=== PATIENT | female | born 1975 | race Caucasian/White ===

== ENCOUNTER 2016-10-06 17:22 | Inpatient (IN) ==
[2016-10-06] MEDS: 0.9 % Sodium Chloride 1,000 ML IVC SCH ×2 (17:45→20:21)
[2016-10-06] MEDS ORDERED: *HR* HYDROmorphone (PF) 1 MG/ML SYRINGE IVP ONE ×2 (17:51→21:49)
[2016-10-06] MEDS ORDERED: *HR* Promethazine 25 MG/ML VIAL IVP ONE (17:51)
--- NOTE | 2016-10-06 18:21 | Emergency Department Note ---
Disposition Clinical Impression: Tachycardia, UTI (urinary tract infection) Disposition: Admitted As Inpatient Condition: Fair Time of Disposition: 21:56 Abdominal Pain HPI - General Chief Complaint: ED Abdominal Pain Stated Complaint: Abd pain Time Seen by Provider: 10/06/16 17:23 Source: patient, EMS Mode of arrival: EMS Limitations: no limitations Nursing Notes Reviewed: Yes Vital Signs Reviewed: Yes - History of Present Illness HPI Narrative: 41-year-old female presents to the ED complaining of left flank pain as well as lower pelvic pain. She states that she has had a fever for the past couple days. She states the left flank pain started about 3 days ago she states the pain is 8 out of 10 radiating further to the back from the flank. She states is a sharp stabbing pain and she has not taken anything for the pain at this time. today she is just been very nauseous and dry heaving but has not vomited anything at this time. She notes no diarrhea or constipation. She notes no shortness of breath or chest pains, headaches, blurry vision, back pain, pain with urination or any trouble urinating. The pelvic pain that she notes is a 2 out of 10 she more says it is a bloating feeling and not really a sharp pain. She states this started at the same time. As for she has not been vomiting but has been dry heaving and nothing is came out. She said she has not been him of the ENT anything for the past day or 2 discussed she does not feel very good. She never did check her temperature was as she has felt hot. IV EMS and came from an urgent care who did a urine dip and showed there was blood in there. She states that she has not had her period in a few months and feels she is beginning menopause. She did have a tubal ligation and does not believe she could be . Pain Scale: 9 - Related Data Home Medications Medication Instructions Recorded Confirmed No Known Home Drugs 10/06/16 10/06/16 Allergies Allergy/AdvReac Type Severity Reaction Status Date / Time Penicillins Allergy Hives Verified 10/06/16 16:00 Constitutional: Reports: fever, weakness. Denies: chills, weight change Eyes: Denies: eye pain, eye discharge, vision change ENT ED: Denies: ear pain, throat pain, dental pain, hearing loss, epistaxis, congestion, dysphagia Cardiovascular: Denies: chest pain, palpitations, dyspnea on exertion, edema, syncope Respiratory: Denies: cough, dyspnea, wheezes, hemoptysis, stridor Gastrointestinal: Reports: abdominal pain, vomiting. Denies: nausea, diarrhea, constipation, hematemesis, melena, hematochezia Genitourinary: Denies: dysuria, frequency, hematuria, discharge Musculoskeletal: Denies: back pain, neck pain, arthralgia, myalgia Integumentary: Denies: rash, abrasion, lesions Neurological: Reports: weakness. Denies: headache, numbness, paresthesias, confusion, abnormal gait, vertigo Psychiatric: Reports: as per HPI Hematological/Lymphatic: Denies: easy bleeding, easy bruising Abdominal Pain PMH - Past Medical History Medical history: Reports: hypertension, other Female Surgical History: Reports: knee replacement, orthopedic, other [employer] history: Reports: bilateral tubal ligation Psychiatric history: Reports: no psych history - Social History Smoking status: Current every day smoker Alcohol use: Reports: none Drug use: Reports: none Physical Exam - General Limitations: no limitations General appearance: alert, in no apparent distress - Head Head exam: atraumatic, normocephalic, normal inspection - Eye Eye exam: Present: normal appearance, PERRL, EOMI - ENT ENT exam: normal exam, normal oropharynx, mucous membranes moist - Neck Neck exam: Present: normal inspection, full ROM, trachea midline. Absent: tenderness, meningismus, lymphadenopathy - Chest Chest inspection: Present: normal inspection, symmetric chest wall rise. Absent : tenderness - Respiratory Respiratory exam: Present: normal lung sounds bilaterally - Cardiovascular Cardiovascular exam: Present: regular rate, normal rhythm, normal heart sounds - Abdominal Exam Abdominal exam: Present: soft, Non-Tender, tenderness (To the left upper quadrant on palpation.), normal bowel sounds. Absent: distention, guarding, rebound, rigidity, trauma, Nicholson's sign, Rovsing's sign, tenderness at McBurney 's Point, mass - Back Exam Back exam: Present: normal inspection, full ROM, CVA tenderness (L). Absent: tenderness, CVA tenderness (R) - Neurological Exam Neurological exam: Present: alert, oriented X3 - Skin Skin exam: Present: warm, dry, intact, normal color Course Course Narrative: [id number] male presents the ED with a fever of 100.8, tachycardic at 112 bpm, and complaining of left flank pain therefore she meets sepsis criteria and the sepsis protocol was started. I believe this most likely to be a pyelonephritis due to possible obstructing stone. We will get a CT of her abdomen and pelvis without contrast. We will do a chest x-ray as left flank pain could be pulmonary in etiology. We will get basic labs including CBC, CMP , urinalysis as well as blood cultures. We started her on Rocephin for antibiotics at this time. She was also given 2 L IV fluids for dehydration. She was given a Zofran by EMS prior to arrival which did not help her nausea. So we gave her 12.5 mg of Phenergan to help with the nausea. Gave her 0.5 mg of Dilaudid for her left flank pain. We do not give Toradol at this time due to not knowing her kidney function. And this being possible kidney etiology. As of This plan by disposition is most likely admission due to being Sirs positive - Reevaluation(s) Reevaluation #1: Patient reevaluated at this time and states that the nausea is much better after the Phenergan. She says the pain has decreased in her left side and only occurs and she takes a very deep breath. She said the Dilaudid worked very well. She says that she is feeling much better at this time does not think she is in a pew. She does not feel as hot anymore. At this time only 1 L of fluids have gone in. I we will still give the second liter fluids as I think most of her symptoms are from dehydration. CT scan came back which showed most likely enteritis as well as calculi in the renal collecting system. They also mentioned that she had cholecystic fluid but no acute cholecystitis this time. They also mentioned she had a very small less than half centimeter squared lung nodule that needed to be followed up with in 6 months with a second CT scan. I told her about all these results. The labs were held up because she was a very hard stick and they were just taken and we are now currently waiting lab results. Now I think she is not meeting surge criteria after she gets the second bag of fluids as well as the nausea medication. Vital Signs Temperature 100.8 F H 10/06/16 17:28 Pulse Rate 117 08/31/17 17:28 Respiratory Rate 22 10/06/16 17:28 Blood Pressure 113/71 10/06/16 17:28 O2 Sat by Pulse Oximetry 98 10/06/16 17:28 Temperature 100.8 F H 10/06/16 17:28 Pulse Rate 117 10/06/16 17:28 Respiratory Rate 18 10/06/16 22:46 Blood Pressure 119/79 10/06/16 22:46 O2 Sat by Pulse Oximetry 98 10/06/16 17:28 Oxygen Delivery Oxygen Delivery Room Air Abdominal Pain - MDM Narrative Medical decision making narrative: 41-year-old female presents to the ED complaining of left flank pain, fever, pelvic pain. Patient presented here she did meet surge criteria on being tachycardic and having a fever. So we immediately started the sepsis protocol or gave HER-2 liters of fluid, ceftriaxone, and basic labs. There was nolab abnormalities other than her being low on platelets. I think this does not need be looked at this time but definitely needs follow-up in the outpatient setting. On UA she did show to have a urinary tract infection which is being treated with the Rocephin. Chest x-ray is normal. CT scan of her abdomen and pelvis was done which showed enteritis, calculi in the renal to her system, biliary sludge but no signs of acute cholecystitis. There also was a lung nodule that is very small that was recommended outpatient follow-up in 6 months. This is all related to the patient. After the 2 ` fluid in the Rocephin she was still tachycardic at 115 bpm. Due to just being unable to control the tachycardia after 2 bags of fluids without admission would be the best course of action. She is still complaining of that left flank pain after talking to her more we decided we did order a d-dimer for possible PE as she cannot be PERC ruled out. If this comes back positive we will order a CT Adela of her chest to rule out PE. Although this is less likely. I talked to the hospitalist Dr. Price who agreed to accept the patient. Patient agreed this plan. Patient this time is now being admitted still being tachycardic up to the hospitalist service. And all other she is stable at this time. She left the department before the d-dimer could be drawn or resulted. The hospitalist will follow up with this on order during a CT angiogram if needed for PE rule out. Chest X-Ray 10/06/16 17:39 IMPRESSION: No acute cardiopulmonary process. D/ / Rory Sims MD / Rory Sims MD Interpreting Provider: Rory Sims MD Abdomen/Pelvis CT 10/06/16 17:50 IMPRESSION: 1. A few mildly dilated jejunal loops potentially related to low-grade enteritis. Liquid stool in the proximal right hemicolon may represent associated diarrhea. 2. Nonobstructing calculi in the renal collecting systems. 3. Questionable biliary sludge and/or cholelithiasis without findings of acute cholecystitis. 4. New 0.8 cm x 0.6 cm solid nodule in the right middle lobe. An infectious or inflammatory etiology is considered most likely. Recommend follow-up chest CT in 6-12 months per the Fleischner Society recommendations for solid pulmonary nodules as below. RECOMMENDATIONS: Fleischner Society guidelines for follow-up and management of incidentally detected pulmonary nodules: Single Solid Nodule: Nodule size equals 6-8 mm In a low-risk patient, CT at 6-12 months, then consider CT at 18-24 months. In a high-risk patient, CT at 6-12 months, then CT at 18-24 months. - Low risk patients include individuals with minimal or absent history of smoking and other known risk factors. - High risk patients include individuals with a history or smoking or known risk factors. Radiology 2017 http://pubs.rsna.org/doi/full/10.1148/radiol.[email or web address] D/ / Rory Sims MD / Rory Sims MD Interpreting Provider: Rory Sims MD - Medical Records Medical records reviewed: Yes I reviewed the patient's medical records. - Lab Data Lab results reviewed: Yes I reviewed the patient's lab results. Result diagrams: 10/06/16 19:18 10/06/16 19:18 Lab Results 10/06/16 10/06/16 10/06/16 Range/Units 19:18 19:18 19:18 WBC 9.3 (4.3-11.1) K/mcL RBC 5.07 H (3.82-4.97) M/mcL Hgb 13.3 (11.5-15.4) g/dL Hct 40.5 (35.3-44.9) % MCV 79.9 L (83.0-100.0) fL MCH 26.2 L (28.0-33.3) pg MCHC 32.8 (31.6-35.5) g/dL RDW 14.1 (11.5-14.5) % Plt Count 104 L (140-400) K/mcL MPV 11.6 (9.4-12.4) fL Immature Gran % 0.4 (0-4) % Seg Neutrophils % 81.5 % Lymphocytes % 9.3 % Monocytes % 8.7 % Eosinophils % 0.0 % Basophils % 0.1 % Neutrophils # 7.5 (1.6-8.9) K/mcL Lymphocytes # 0.9 (0.6-4.6) K/mcL Monocytes # 0.8 (0.0-1.3) K/mcL Eosinophils # 0.0 (0.0-0.6) K/mcL Basophils # 0.0 (0.0-0.2) K/mcL PT (9.4-12.1) Seconds INR APTT (26.0-36.0) Seconds Sodium (136-145) mEq/L Potassium (3.5-4.5) mEq/L Chloride (98-109) mEq/L Carbon Dioxide (19-29) mEq/L BUN (7-20) mg/dL Creatinine (0.57-1.11) mg/dL Est GFR ( Amer) (> 60) Est GFR (Non-Af Amer) (> 60) BUN/Creatinine Ratio (6-26) Glucose (70-99) mg/dL Calculated Osmolality (280-300) Lactic Acid (0.5-2.2) mmol/L Calcium (8.6-10.8) mg/dL Phosphorus (2.3-4.7) mg/dL Magnesium (1.6-2.6) mg/dL Total Bilirubin (0.2-1.2) mg/dL Direct Bilirubin (0.0-0.5) mg/dL Indirect Bilirubin (0.0-1.2) mg/dL AST (5-34) Units/L ALT (0-55) Units/L Alkaline Phosphatase (38-126) Units/L Troponin I (0-0.03) ng/mL B-Natriuretic Peptide 11 (0-100) pg/mL Serum Total Protein (6.0-8.3) g/dL Albumin (3.5-5.0) g/dL Globulin (2.4-3.5) g/dL Albumin/Globulin Ratio (1.1-2.2) Random Cortisol 13.8 mcg/dl Urine Color (Yellow) Urine Clarity (Clear) Urine pH (5.0-8.0) pH Units Ur Specific [place] (1.010-1.025) Urine Protein (Neg-Trace) mg/dL Urine Glucose (UA) (Normal) mg/dL Urine Ketones (Negative) mg/dL Urine Blood (Negative) Urine Nitrite (Negative) Urine Bilirubin (Negative) Urine Urobilinogen (Normal) mg/dL Ur Leukocyte Esterase (Negative) Urine Microscopic RBC (0-3) per hpf Urine Microscopic WBC (0-3) per hpf Ur Squamous Epith Cells (None-Few) per lpf Urine Bacteria (None-Few) per hpf Hyaline Casts (None-Few) per lpf Granular Casts (None Seen) per lpf Ur Culture Indicated? (NO) 10/06/16 10/06/16 10/06/16 Range/Units 19:18 19:18 19:18 WBC (4.3-11.1) K/mcL RBC (3.82-4.97) M/mcL Hgb (11.5-15.4) g/dL Hct (35.3-44.9) % MCV (83.0-100.0) fL MCH (28.0-33.3) pg MCHC (31.6-35.5) g/dL RDW (11.5-14.5) % Plt Count (140-400) K/mcL MPV (9.4-12.4) fL Immature Gran % (0-4) % Seg Neutrophils % % Lymphocytes % % Monocytes % % Eosinophils % % Basophils % % Neutrophils # (1.6-8.9) K/mcL Lymphocytes # (0.6-4.6) K/mcL Monocytes # (0.0-1.3) K/mcL Eosinophils # (0.0-0.6) K/mcL Basophils # (0.0-0.2) K/mcL PT 12.6 H (9.4-12.1) Seconds INR 1.2 APTT 28.9 (26.0-36.0) Seconds Sodium 130 L (136-145) mEq/L Potassium 3.4 L (3.5-4.5) mEq/L Chloride 101 (98-109) mEq/L Carbon Dioxide 19 (19-29) mEq/L BUN 20 (7-20) mg/dL Creatinine 0.93 (0.57-1.11) mg/dL Est GFR ( Amer) > 60 (> 60) Est GFR (Non-Af Amer) > 60 (> 60) BUN/Creatinine Ratio 22 (6-26) Glucose 116 H (70-99) mg/dL Calculated Osmolality 274 L (280-300) Lactic Acid 0.9 (0.5-2.2) mmol/L Calcium 9.0 (8.6-10.8) mg/dL Phosphorus 2.1 L (2.3-4.7) mg/dL Magnesium 1.5 L (1.6-2.6) mg/dL Total Bilirubin 0.7 (0.2-1.2) mg/dL Direct Bilirubin 0.3 (0.0-0.5) mg/dL Indirect Bilirubin 0.4 (0.0-1.2) mg/dL AST 22 (5-34) Units/L ALT 20 (0-55) Units/L Alkaline Phosphatase 91 (38-126) Units/L Troponin I (0-0.03) ng/mL B-Natriuretic Peptide (0-100) pg/mL Serum Total Protein 7.2 (6.0-8.3) g/dL Albumin 3.0 L (3.5-5.0) g/dL Globulin 4.2 H (2.4-3.5) g/dL Albumin/Globulin Ratio 0.7 L (1.1-2.2) Random Cortisol mcg/dl Urine Color (Yellow) Urine Clarity (Clear) Urine pH (5.0-8.0) pH Units Ur Specific [place] (1.010-1.025) Urine Protein (Neg-Trace) mg/dL Urine Glucose (UA) (Normal) mg/dL Urine Ketones (Negative) mg/dL Urine Blood (Negative) Urine Nitrite (Negative) Urine Bilirubin (Negative) Urine Urobilinogen (Normal) mg/dL Ur Leukocyte Esterase (Negative) Urine Microscopic RBC (0-3) per hpf Urine Microscopic WBC (0-3) per hpf Ur Squamous Epith Cells (None-Few) per lpf Urine Bacteria (None-Few) per hpf Hyaline Casts (None-Few) per lpf Granular Casts (None Seen) per lpf Ur Culture Indicated? (NO) 10/06/16 10/06/16 Range/Units 19:18 19:40 WBC (4.3-11.1) K/mcL RBC (3.82-4.97) M/mcL Hgb (11.5-15.4) g/dL Hct (35.3-44.9) % MCV (83.0-100.0) fL MCH (28.0-33.3) pg MCHC (31.6-35.5) g/dL RDW (11.5-14.5) % Plt Count (140-400) K/mcL MPV (9.4-12.4) fL Immature Gran % (0-4) % Seg Neutrophils % % Lymphocytes % % Monocytes % % Eosinophils % % Basophils % % Neutrophils # (1.6-8.9) K/mcL Lymphocytes # (0.6-4.6) K/mcL Monocytes # (0.0-1.3) K/mcL Eosinophils # (0.0-0.6) K/mcL Basophils # (0.0-0.2) K/mcL PT (9.4-12.1) Seconds INR APTT (26.0-36.0) Seconds Sodium (136-145) mEq/L Potassium (3.5-4.5) mEq/L Chloride (98-109) mEq/L Carbon Dioxide (19-29) mEq/L BUN (7-20) mg/dL Creatinine (0.57-1.11) mg/dL Est GFR ( Amer) (> 60) Est GFR (Non-Af Amer) (> 60) BUN/Creatinine Ratio (6-26) Glucose (70-99) mg/dL Calculated Osmolality (280-300) Lactic Acid (0.5-2.2) mmol/L Calcium (8.6-10.8) mg/dL Phosphorus (2.3-4.7) mg/dL Magnesium (1.6-2.6) mg/dL Total Bilirubin (0.2-1.2) mg/dL Direct Bilirubin (0.0-0.5) mg/dL Indirect Bilirubin (0.0-1.2) mg/dL AST (5-34) Units/L ALT (0-55) Units/L Alkaline Phosphatase (38-126) Units/L Troponin I 0.01 (0-0.03) ng/mL B-Natriuretic Peptide (0-100) pg/mL Serum Total Protein (6.0-8.3) g/dL Albumin (3.5-5.0) g/dL Globulin (2.4-3.5) g/dL Albumin/Globulin Ratio (1.1-2.2) Random Cortisol mcg/dl Urine Color Dark Yellow (Yellow) Urine Clarity Turbid A (Clear) Urine pH 6.0 (5.0-8.0) pH Units Ur Specific [place] 1.023 (1.010-1.025) Urine Protein 100 H (Neg-Trace) mg/dL Urine Glucose (UA) Normal (Normal) mg/dL Urine Ketones Trace H (Negative) mg/dL Urine Blood Moderate H (Negative) Urine Nitrite Positive A (Negative) Urine Bilirubin Small H (Negative) Urine Urobilinogen Normal (Normal) mg/dL Ur Leukocyte Esterase Moderate H (Negative) Urine Microscopic RBC 5-15 H (0-3) per hpf Urine Microscopic WBC 15-30 H (0-3) per hpf Ur Squamous Epith Cells Many H (None-Few) per lpf Urine Bacteria Many H (None-Few) per hpf Hyaline Casts Few (None-Few) per lpf Granular Casts Many H (None Seen) per lpf Ur Culture Indicated? YES A (NO) - Radiology Data Radiology results reviewed: Yes I reviewed the patient's radiology results. - EKG Data EKG attestation: Yes I reviewed and interpreted this EKG. EKG results narrative: EKG done at 1745 degree by myself and the attending. Shows a sinus tachycardic rhythm at a rate of 119 bpm, NM 124, QRS 92, QTC 375 with a normal axis. There are no acute ST changes or T-wave changes. There are no signs of heart strain or hypertrophy. There was no old EKG to compare with. Overall impression is EKG is sinus tachycardia with no acute ischemic changes. EKG shows normal: sinus rhythm, axis, intervals, QRS complexes, ST-T waves Rate: tachycardia Rhythm: NSR [place]/QRS: normal When compared to previous EKG there are: previous EKG unavailable Interpretation: no acute changes, normal EKG Attestation Statement - Attestation Attestation: I, Jeff Spear DO, examined this patient [id number] and my medical decision-making was reviewed with Dr. Braswell PGY - 1, Resident Physician. I agree with the documented findings, disposition and treatment plan as described except to the extent set forth below. Please see my progress notes for details. 40-year-old female presents with left-sided flank pain and abdominal discomfort over the last 24-48 hours. She has had persistent worsening nausea and vomiting. Patient seen outside facility recommended come here for evaluation. Heart rate was elevated in transit as well as a fever of 100.8 on presentation. Patient initial evaluation completed with concern for possible urinary tract infection or kidney stone. Patient started on IV antibiotics here as well as 2 L of fluid be given blood cultures and evaluation for sepsis were started at this point. CT imaging of the abdomen chest x-ray were resulted completed here. Documentation of the conversations consultations medical intervention were reviewed with the patient. My physical exam shows obese female resting comfortably in the bed in some mild distress. Heart rate was elevated on initial arrival. Lungs are clear heart is regular abdomen is soft mild tenderness in left lower side of the abdomen into the suprapubic region of the abdomen. Patient denies any vaginal discharge or bleeding. She has had some burning with urination cramping sensation left side of her abdomen. Labs are consistent with significant urinary tract infection CT imaging confirms enteritis. Fluids given here so his pain medication. Patient sleeping in the bed but she is still tachycardic. Will determine disposition once patient is more alert and all the medical intervention has been completed. [id number] Patient is still persistently tachycardic despite antibiotics and fluid hydration here. Patient is still having discomfort in the left side of the abdomen and the flank. This is consistent with her enteritis and urinary tract infection. Patient recommended for admission this time considering she has been persistently tachycardic. D-dimer added on for complete evaluation. This will not inhibit the admission process at this time. Patient otherwise be admitted for definitive evaluation would appears to be infectious source tachycardia and discomfort. Labs reviewed no significant white blood cell count noted patient does have grossly infected urine. Patient informed see detailed documentation correspondence with the hospitalist
[2016-10-06 19:29] LABS: Basophils % 0.1 %; Hematocrit 40.5 % (35.3-44.9); Hemoglobin 13.3 g/dL (11.5-15.4); Immature Granulocytes % 0.4 % (0-4); Lymphocytes # 0.9 K/mcL (0.6-4.6); Lymphocytes % 9.3 %; Mean Corpuscular HGB Conc 32.8 g/dL (31.6-35.5); Mean Corpuscular Hemoglobin 26.2 pg (28.0-33.3); Mean Corpuscular Volume 79.9 fL (83.0-100.0); Mean Platelet Volume 11.6 fL (9.4-12.4); Monocytes # 0.8 K/mcL (0.0-1.3); Monocytes % 8.7 %; Neutrophils # 7.5 K/mcL (1.6-8.9); Platelet Count 104 K/mcL (140-400); Red Blood Count 5.07 M/mcL (3.82-4.97); Red Cell Distribution Width 14.1 % (11.5-14.5); Segmented Neutrophils % 81.5 %
[2016-10-06 19:34] LABS: INR 1.2; Prothrombin Time 12.6 Seconds (9.4-12.1)
[2016-10-06 19:37] LABS: Activated Partial Thrombo Time 28.9 Seconds (26.0-36.0)
[2016-10-06 19:46] LABS: Alanine Aminotransferase 20 Units/L (0-55); Albumin/Globulin Ratio 0.7 (1.1-2.2); Alkaline Phosphatase 91 Units/L (38-126); Aspartate Amino Transferase 22 Units/L (5-34); BUN/Creatinine Ratio 22 (6-26); Bilirubin,Direct 0.3 mg/dL (0.0-0.5); Bilirubin,Indirect 0.4 mg/dL (0.0-1.2); Bilirubin,Total 0.7 mg/dL (0.2-1.2); Blood Urea Nitrogen 20 mg/dL (7-20); Carbon Dioxide 19 mEq/L (19-29); Chloride 101 mEq/L (98-109); Globulin 4.2 g/dL (2.4-3.5); Glucose 116 mg/dL (70-99); Magnesium 1.5 mg/dL (1.6-2.6); Osmolality,Calculated 274 (280-300); Phosphorous 2.1 mg/dL (2.3-4.7); Potassium 3.4 mEq/L (3.5-4.5); Sodium 130 mEq/L (136-145); Total Protein 7.2 g/dL (6.0-8.3); eGFR For African Americans > 60 (> 60); eGFR For Non-African Americans > 60 (> 60)
[2016-10-06 19:49] LABS: Bilirubin,Urine Small (Negative); Blood,Urine Moderate (Negative); Clarity,Urine Turbid (Clear); Color,Urine Dark Yellow (Yellow); Glucose,Urine (UA) Normal (Normal); Ketones,Urine Trace mg/dL (Negative); Leukocyte Esterase,Urine Moderate (Negative); Nitrite,Urine Positive (Negative); Protein,Urine 100 mg/dL (Neg-Trace); Specific Gravity,Urine 1.023 (1.010-1.025); Urobilinogen,Urine Normal (Normal)
[2016-10-06 19:51] LABS: Bacteria,Urine Many per hpf (None-Few); Squamous Epithelial Cell,Urine Many per lpf (None-Few)
[2016-10-06 19:59] LABS: WBC,Urine 15-30 per hpf (0-3)
[2016-10-06 20:00] LABS: Granular Casts,Urine Many per lpf (None Seen); Hyaline Casts,Urine Few per lpf (None-Few)
[2016-10-06] MEDS ORDERED: Acetaminophen 325 MG TABLET PO PRN (23:41)
[2016-10-06] MEDS ORDERED: Naloxone 0.4 MG/ML INJ IVP PRN (23:41)
[2016-10-06] MEDS ORDERED: Ondansetron 4 MG/2 ML VIAL IVP PRN (23:41)
[2016-10-07] MEDS: 0.9 % Sodium Chloride 1,000 ML IVC SCH ×3 (00:54→15:35)
[2016-10-07] MEDS: *HR* HYDROcodone/Acet 5/325 mg TABLET PO PRN ×4 (00:54→16:39)
[2016-10-07] MEDS: Nicotine 21 MG PATCH.TD24 TD SCH ×2 (00:55→09:45)
[2016-10-07 01:12] LABS: Basophils % 0.1 %; Eosinophils % 0.1 %; Hematocrit 38.5 % (35.3-44.9); Hemoglobin 12.6 g/dL (11.5-15.4); Immature Granulocytes % 0.5 % (0-4); Lymphocytes # 1.1 K/mcL (0.6-4.6); Lymphocytes % 12.5 %; Mean Corpuscular HGB Conc 32.7 g/dL (31.6-35.5); Mean Corpuscular Hemoglobin 26.7 pg (28.0-33.3); Mean Corpuscular Volume 81.6 fL (83.0-100.0); Mean Platelet Volume 11.7 fL (9.4-12.4); Monocytes # 0.9 K/mcL (0.0-1.3); Red Blood Count 4.72 M/mcL (3.82-4.97); Red Cell Distribution Width 14.2 % (11.5-14.5); Segmented Neutrophils % 76.8 %
[2016-10-07 01:13] LABS: Neutrophils # 6.5 K/mcL (1.6-8.9); Platelet Count 92 K/mcL (140-400)
[2016-10-07 01:24] LABS: BUN/Creatinine Ratio 21 (6-26); Blood Urea Nitrogen 17 mg/dL (7-20); Calcium 8.5 mg/dL (8.6-10.8); Carbon Dioxide 19 mEq/L (19-29); Chloride 104 mEq/L (98-109); Glucose 143 mg/dL (70-99); Osmolality,Calculated 282 (280-300); Potassium 3.6 mEq/L (3.5-4.5); Sodium 134 mEq/L (136-145); eGFR For African Americans > 60 (> 60); eGFR For Non-African Americans > 60 (> 60)
--- NOTE | 2016-10-07 04:39 | Internal Med History&Physical ---
Date of Encounter: 10/06/16 Time of Encounter: 21:00 Assessment and Plan (1) DVT prophylaxis Current visit: No Status: Acute Heparin subcutaneously (2) Sepsis Current visit: No Status: Resolved Patient has a fever and tachycardia. Consider sepsis. Infection site should be UTI as UA positive. - We will treat patient with IV fluid - Continue Rocephin. Follow-up urine culture. Qualifiers: Sepsis type: sepsis due to unspecified organism Qualified Code(s): A41.9 - Sepsis, unspecified organism (3) UTI (urinary tract infection) Current visit: Yes Status: Acute Patient has left CVA tenderness. UA positive. Patient has fever and nausea. Consider UTI possibly mild pyelonephritis. - Continue IV Rocephin. Follow urine culture Qualifiers: Urinary tract infection type: acute cystitis Hematuria presence: without hematuria Qualified Code(s): N30.00 - Acute cystitis without hematuria (4) Elevated d-dimer Current visit: Yes Status: Acute Patient has left-sided chest pain, worsening on deep breath. PE was suspected and a d-dimer was ordered. D-dimer high at 2000 level. - Patient denies shortness of breath. No desaturation. Mild tachycardia with a fever, possibly due to fever. - Suspect PE but probably is low. However, as d-dimer is positive, will order CTA to rule out PE Internal Medicine - H&P: HPI Chief complaint: Fever and the left chest wall and flank pain Admitted From: Home Plans for Post Hospital Care: Home History of present illness: Ms. Rosales is a 41 year old female with no known past medical history presented to emergency room for left chest wall and flank pain and a fever. Patient started to have fever 3 days ago, with nausea, but no vomiting. Patient has a mild dry cough, no diarrhea. Patient denies dysuria, frequency, or urgency. The left-sided chest wall and flank pain started 1 day ago. The pain is a sharp and worsening on deep breath. Patient denies shortness of breath, she denies leg swelling or leg pain, no recent travel. Past Med Surg Social Fam HX - Past Medical History Medical history: hypertension, other Psychiatric history: no psych history - Past Surgical History Surgical History: knee replacement, orthopedic, other - Social History Smoking Status: Current every day smoker Packs per day: 0.25 Smokeless Tobacco Status: No Alcohol use: none Drug use: none - Family History Mother Adopted: [place]: MAI Age: 58 Family Member Ethnicity: Non- Living Status: Still Living Hx Family Cardiac Disorders: Yes Hx Family Respiratory Disorders: No Hx Family Cancer: Yes (BREAST CANCER, CARVICAL) Hx Family GI Disorders: No Hx Family Genitourinary Disorders: No Hx Family Endocrine Disorder: No Hx Family Musculoskeletal Disorders: No Hx Family Neuromuscular Disorders: No Hx Family Neurologic Disorders: No Hx Family HEENT Disorders: No Hx Family Autoimmune Disorders: No Hx Family Reproductive Disorders: No Hx Family Psychosocial Disorders: No Hx Family Medical Disorders: No Internal Medicine - H&P: Meds No Known Home Drugs 10/06/16 [History] 3 Allergy/AdvReac Type Severity Reaction Status Date / Time Penicillins Allergy Hives Verified 10/06/16 16:00 All Systems PM: A 10-system review of systems was performed and is negative for pertinent findings except as documented above in the HPI. - Constitutional Vitals: Temp Pulse Resp BP Pulse Ox 100.0 F H 118 18 101/61 92 10/07/16 03:05 10/07/16 03:05 10/07/16 03:05 10/07/16 03:05 10/07/16 03:05 General appearance: Present: A&O X 3, no acute distress, answers questions appropriately - Head Head exam: Present: atraumatic, normocephalic - Eye Eye exam: Present: PERRL, conjuntiva pink, sclera anicteric Pupils: Present: PERRL - Neck Neck exam general surgery: Present: supple, trachea midline. Absent: lymphadenopathy - Respiratory Respiratory exam: Present: chest wall tenderness, CTAB. Absent: accessory muscle use, rales, rhonchi, wheezes - Cardiovascular Cardiovascular exam: Present: RRR, +S1, +S2. Absent: diastolic murmur, gallop, rubs, systolic murmur - GI/Abdominal GI/Abdominal exam: Present: normal bowel sounds, soft, no peritoneal signs. Absent: distended, tenderness Additional comments: CVAT on left side - Extremities Exam Extremities exam: Present: warm, radial pulses palpable and symmetrical. Absent : calf tenderness, cyanotic, pedal edema - Neurological Exam Neurological exam: Present: CN II-XII intact, oriented X3, no focal deficits. Absent: pronater drift, facial droop, speech deficit - Skin Skin exam: Present: dry, intact Internal Med - H&P Results - Labs CBC & Chem 7: 10/07/16 00:52 10/07/16 00:52 Labs: Short CBC 10/07/16 Range/Units 00:52 WBC 8.5 (4.3-11.1) K/mcL Hgb 12.6 (11.5-15.4) g/dL Hct 38.5 (35.3-44.9) % Plt Count 92 L (140-400) K/mcL Neutrophils # 6.5 (1.6-8.9) K/mcL BMP 10/07/16 00:52 Sodium 134 L Potassium 3.6 Chloride 104 Carbon Dioxide 19 BUN 17 Creatinine 0.82 Glucose 143 H Calcium 8.5 L
[2016-10-07] MEDS: *HR* Heparin 5,000 UNIT/ML VIAL SQ SCH ×2 (05:27→16:42)
[2016-10-07] MEDS ORDERED: 0.9 % Sodium Chloride 1,000 ML IVC ONE (08:36)
[2016-10-07 08:55] LABS: Acinetobacter baumannii by PCR Not Detected (Not Detect); Candida albicans by PCR Not Detected (Not Detect); Candida glabrata by PCR Not Detected (Not Detect); Candida krusei by PCR Not Detected (Not Detect); Candida parapsilosis by PCR Not Detected (Not Detect); Candida tropicalis by PCR Not Detected (Not Detect); Enterococcus by PCR Not Detected (Not Detect); Escherichia coli by PCR Not Detected (Not Detect); Klebsiella oxytoca by PCR Not Detected (Not Detect); Klebsiella pneumoniae by PCR Not Detected (Not Detect); Pseudomonas aeruginosa by PCR Not Detected (Not Detect); Serratia marcescens by PCR Not Detected (Not Detect); Staphylococcus aureus by PCR ***DETECTED*** (Not Detect); Streptococcus agalactiae(B)PCR Not Detected (Not Detect); Streptococcus by PCR Not Detected (Not Detect); Streptococcus pneumoniae PCR Not Detected (Not Detect); Streptococcus pyogenes (A) PCR Not Detected (Not Detect); mecA Methicillin-Resist Gene Not Detected (Not Detect)
[2016-10-07] MEDS ORDERED: Vancomycin 1,500 MG in D5% in Water 250 ML IVPB SCH ×2 (09:00→10:00)
[2016-10-07] MEDS: *HR* Morphine 2 MG/ML SYRINGE IVP ONE (09:44)
[2016-10-07] MEDS ORDERED: Azithromycin 500 MG in D5% in Water 250 ML IVPB SCH (10:00)
[2016-10-07 10:09] LABS: Amphetamine Screen,Urine Positive ng/mL (Cutoff=1000); Barbiturate Screen,Urine Negative ng/mL (Cutoff=200); Benzodiazepines Screen,Urine Negative ng/mL (Cutoff=200); Cannabinoid Screen,Urine Positive ng/mL (Cutoff = 50); Cocaine Screen,Urine Negative ng/mL (Cutoff= 300); Opiate Screen,Urine Positive ng/mL (Cutoff=300); Phencyclidine Screen,Urine Negative ng/mL (Cutoff=25)
--- NOTE | 2016-10-07 10:57 | Infectious Disease Consult ---
Date of Encounter: 10/07/16 Time of Encounter: 10:51 Assessment and Plan (1) Sepsis Status: Resolved Assessment and plan: The patient had three SIRS criteria on admission. Likely secondary to bacteremia. Improved. Tachycardia is improved and tachypnea has resolved. The patient continues to have low-grade fevers. Blood cultures drawn 10/06/16 are positive 2/2 sets for MSSA. Qualifiers: Sepsis type: sepsis due to unspecified organism Qualified Code(s): A41.9 - Sepsis, unspecified organism (2) Bacteremia Status: Acute Assessment and plan: Causative organism MSSA. Source unclear: left lower extremity abscess (less likely) vs. other. Blood cultures drawn 10/06/16 are positive 2/2 sets for MSSA. Complicated due to the patient having hardware. The patient has one major and one minor Modified Fisher's Criteria. She may have another minor criteria if the pulmonary nodules are septic emboli. No endocarditis stigmata noted on exam. The patient will need a TTE, and possible a ANDRES, prior to discharge. Repeat blood cultures x 2 sets now. Discontinue zithromax. Discontinue vancomycin. Continue Rocephin, but increase dose to 2 grams IV daily. Duration of treatment depends on the clinical picture, but likely at least 4 weeks of IV antibiotics. (3) UTI (urinary tract infection) Status: Acute Assessment and plan: Causative organism unclear. Urinalysis indicative of pyuria. CT negative for pyelonephritis. Culture pending. Continue Rocephin as above. May need to adjust antibiotics based on culture results. Qualifiers: Urinary tract infection type: acute cystitis Hematuria presence: without hematuria Qualified Code(s): N30.00 - Acute cystitis without hematuria (4) Pulmonary nodule Status: Acute Assessment and plan: Etiology unclear--> ? septic emboli given the patient's bacteremia. Recommend pulmonology to evaluate. (5) IV drug user Status: Resolved Assessment and plan: Patient reports last IVDU was 10 years ago, but her UDS was positive for THC, amphetamines, and opiates. Check hepatitis profile. Check HIV. (6) Tobacco abuse Status: Chronic Infectious Disease HPI - Data of Consult Patient: new to practice Consult date: 10/07/16 Requesting Physician: Minnie Kessler CNP Primary Care Provider: PCP NONE - Consult Narrative Reason for consult: MSSA bacteremia History of present illness: Ms. Rosales is a 41 year old female with history of hypertension, chronic back pain , and osteoarthritis status post bilateral total knee replacements. The patient was admitted to the hospital September 08 for urinary tract infection and sepsis. We are consulted for first for further recommendations regarding MSSA bacteremia. The patient is a 41-year-old female with past medical history as stated above. The patient presented to the ER with ordered a history of left lower abdominal pain, subjective fever, malaise, and nausea with dry heaves. She was originally evaluated at a local urgent care where she had a [id number] urinalysis and was subsequently directed to come to the emergency department. Upon arrival here , the patient was febrile and tachycardic and tachypneic. Laboratory studies revealed a normal white blood cell count, but she did have some thrombus cytopenia. Blood cultures were drawn 2 sets and are positive for MSSA area chest x-ray was negative. She did have a CT the abdomen and pelvis that shows low-grade enteritis, nonobstructing renal calculi, and possible biliary sludge versus cholelithiasis. Additionally, there was a small lung nodule noted in the right middle lobe. A urinalysis obtained in the ER was positive for pyuria. A urine culture is pending. She was started empirically on IV Rocephin and admitted to the hospital for further evaluation. [place], the patient continues to have low-grade fevers with a MAXIMUM TEMPERATURE of 100.2. White blood cell count remains normal. Repeat lactic acid this morning is elevated at 2.5. Urine drug screen was positive for opiates, amphetamines, and THC. Due to the patient having an elevated d-dimer, a CTA of the chest was completed that was negative for PE, but did show scattered, ill- defined nodular opacities throughout the bilateral lungs without cavitation. Currently, the patient is on IV Zithromax, IV Rocephin, and IV vancomycin. We' ve been asked to evaluate and make further recommendations. Exam today, the patient states that overall she feels about the same today she did yesterday. She again endorses a four-day history of fatigue, malaise, and arthralgias. She reports Some generalized headache and neck pain, but denies any stiffness. The left-sided chest pain that radiates to her back. She denies any shortness of breath or cough. She denies any congestion, earache, or sore throat. She reports that the nausea and dry heaves have resolved. She continues to complain of gassiness and lower abdominal pressure. She denies constipation or diarrhea. She denies dysuria, hematuria, or flank pain. She reports a foul odor to her urine. She denies vaginal bleeding or discharge. She reports having a poor appetite as well. She states about a month ago, she had a superficial abscess to the medial left calf that resolved on its own. She otherwise denies any skin or soft tissue infections. She reports chronic back pain that is at its baseline. She denies ETOH or drug use recently. She reports last IV drug use was 10 years ago and was methamphetamine. She smokes about a pack of cigarettes per day. CC: Minnie Kessler, [place] Past Med Surg Social Fam HX - Past Medical History Attestation: Yes The following information was validated with the patient. Source: patient, old records reviewed, nursing notes reviewed Medical history: hypertension, other Psychiatric history: no psych history - Past Surgical History Surgical History: knee replacement (Right 2013, Left 2009), orthopedic, other ( back surgery x 2, bilateral carpa tunnel surgery), other (infected mammary gland excision) - Social History Smoking Status: Current every day smoker Packs per day: 0.25 Smokeless Tobacco Status: No Alcohol use: none Drug use: none Occupational status: disabled Current living situation: Home - Independent Activity Level: Independent ambulation Recent Out of Country Travel Within the Last 8 Weeks: No Exposure or Possible Exposure to Illness During Travel: No - Family History Mother Adopted: [place]: MAI Age: 58 Family Member Ethnicity: Non- Living Status: Still Living Hx Family Cardiac Disorders: Yes Hx Family Respiratory Disorders: No Hx Family Cancer: Yes (BREAST CANCER, CARVICAL) Hx Family GI Disorders: No Hx Family Genitourinary Disorders: No Hx Family Endocrine Disorder: No Hx Family Musculoskeletal Disorders: No Hx Family Neuromuscular Disorders: No Hx Family Neurologic Disorders: No Hx Family HEENT Disorders: No Hx Family Autoimmune Disorders: No Hx Family Reproductive Disorders: No Hx Family Psychosocial Disorders: No Hx Family Medical Disorders: No Infectious Disease-CN:Meds No Known Home Drugs 10/06/16 [History] 3 Allergy/AdvReac Type Severity Reaction Status Date / Time Penicillins Allergy Hives Verified 10/06/16 16:00 All systems: reviewed and no additional remarkable complaints except as stated Exam - Constitutional Vitals: Temp Pulse Resp BP Pulse Ox 100.2 F H 92 14 110/69 90 10/07/16 07:02 10/07/16 09:30 10/07/16 09:30 10/07/16 09:30 10/07/16 07:02 General appearance: cooperative, no acute distress, obese - Head Head exam: Present: atraumatic, normal inspection, normocephalic - Eye Eye exam: Present: EOMI, normal appearance, PERRL Pupils: Present: normal accommodation Additional comments: No subconjunctival hemorrhage noted. - ENT ENT exam: Present: mucous membranes moist Additional comments: Poor dentition noted. - Neck Neck exam: Present: normal inspection. Absent: lymphadenopathy - Respiratory Respiratory exam: Present: CTAB. Absent: rales, respiratory distress, rhonchi, wheezes - Cardiovascular Cardiovascular exam: Present: +S1, +S2, tachycardia Additional comments: Reproducible left sided chest pain noted. - GI/Abdominal GI/Abdominal exam: Present: distended (obese), normal bowel sounds, soft, tenderness (generalizes) - Extremities Exam Extremities exam: Absent: joint swelling, pedal edema, tenderness Additional comments: Superficial lesion noted to the left medial calf with scab. No erythema, warmth , drainage, or tenderness noted. No endocarditis stigmata noted. - Back Exam Back exam: Present: normal inspection. Absent: CVA tenderness (L), CVA tenderness (R), paraspinal tenderness, vertebral tenderness - Neurological Exam Neurological exam: Present: alert, oriented X3, no focal deficits - Psychiatric Psychiatric exam: Present: normal affect, normal mood - Skin Skin exam: Present: dry, intact, normal color, warm Infectious Disease CN: Results - Labs CBC & Chem 7: 10/07/16 00:52 10/07/16 00:52 Cultures: Cultures 10/06/16 19:18 Blood Culture - Preliminary Peripheral Venipuncture Staphylococcus aureus 10/06/16 19:18 Blood Culture - Preliminary Peripheral Venipuncture Staphylococcus aureus Serology: Serology 10/06/16 10/06/16 Range/Units 19:40 19:18 Urine Color Dark Yellow (Yellow) Urine Clarity Turbid A (Clear) Urine pH 6.0 (5.0-8.0) pH Units Ur Specific [place] 1.023 (1.010-1.025) Urine Protein 100 H (Neg-Trace) mg/dL Urine Glucose (UA) Normal (Normal) mg/dL Urine Ketones Trace H (Negative) mg/dL Urine Blood Moderate H (Negative) Urine Nitrite Positive A (Negative) Urine Bilirubin Small H (Negative) Urine Urobilinogen Normal (Normal) mg/dL Ur Leukocyte Esterase Moderate H (Negative) Urine Microscopic RBC 5-15 H (0-3) per hpf Urine Microscopic WBC 15-30 H (0-3) per hpf Ur Squamous Epith Cells Many H (None-Few) per lpf Urine Bacteria Many H (None-Few) per hpf Hyaline Casts Few (None-Few) per lpf Granular Casts Many H (None Seen) per lpf Ur Culture Indicated? YES A (NO) A. baumannii (PCR) Not Detected (Not Detect) Monique albicans (PCR) Not Detected (Not Detect) C. glabrata (PCR) Not Detected (Not Detect) C. krusei (PCR) Not Detected (Not Detect) C. parapsilosis (PCR) Not Detected (Not Detect) C. tropicalis (PCR) Not Detected (Not Detect) Enterobacteriac sp PCR Not Detected (Not Detect) E. cloacae complex PCR Not Detected (Not Detect) Enterococcus sp PCR Not Detected (Not Detect) E. coli (PCR) Not Detected (Not Detect) H. influenzae (PCR) Not Detected (Not Detect) Klebsiella oxytoca PCR Not Detected (Not Detect) Klebsiella pneumoniae Not Detected (Not Detect) List. monocytogenes PCR Not Detected (Not Detect) N. meningitidis (PCR) Not Detected (Not Detect) Proteus species (PCR) Not Detected (Not Detect) Serratia marcescens PCR Not Detected (Not Detect) Staphylococcus sp PCR DETECTED A (Not Detect) Staph aureus (PCR) DETECTED A (Not Detect) mecA-Methicil Res Gene Not Detected (Not Detect) Streptococcus sp PCR Not Detected (Not Detect) Group A Strep DNA Not Detected (Not Detect) Group B Strep (PCR) Not Detected (Not Detect) Strep pneumoniae (PCR) Not Detected (Not Detect) P. aeruginosa (PCR) Not Detected (Not Detect) Jenna/B-Vanco Res Genes N/A (Not Detect) KPC (blaKPC) Detect PCR N/A (Not Detect) Consult Discharge Plan - Plan Referrals: NONE,PCP [Primary Care Provider] -
[2016-10-07] MEDS: Ipratropium/Albuterol Neb 3 ML IH SCH ×5 (11:09→23:55)
--- NOTE | 2016-10-07 11:46 | Gastroenterology Consult Note ---
<Ruth Shah - Last Filed: 10/07/16 14:18> Date of Encounter: 10/07/16 Time of Encounter: 12:55 - Assessment and plan (1) Bacteremia Status: Acute (2) Abnormal CT of the abdomen Status: Acute Assessment and plan: shows possible enteritis, however, patient is not exhibiting any symptoms of same. Monitor. - Time Spent With Patient Total time spent is greater than 50% in coordination of care (as documented) at patient's floor/unit and/or counseling patient: less than 15 minutes GI History of Present Illness - Data of Consult Patient: new to practice Consult date: 10/07/16 Requesting Physician: Minnie Kessler CNP - Consult Narrative Reason for consult: spleno/hepatomegaly, normal LFTs, hx of IVDU History of present illness: Ms. Rosales is a 41 year old female with a PMH significant for HTN, chronic back pain and OA, she is s/p b/l total knee replacements. She has a remote hx of IVDU (10 years). She was admitted to the hospital September 08 for urinary tract infection and sepsis, dx of MSSA bacteremia. Medical record indicates she presented with LL abd pain, fever, malaise and nausea with dry heaves. Upon arrival, she met SIRS criteria. She was admitted and is being treated with atbs , she has been seen by ID during her inpatient stay. She did have a CT the abdomen and pelvis that shows low-grade enteritis, nonobstructing renal calculi , and possible biliary sludge versus cholelithiasis. Additionally, there was a small lung nodule noted in the right middle lobe and evidence of mild spleno and hepatomegaly. Her LFTs are wnl, hepatitis profile is pending. She denies ETOH or drug use recently. She reports last IV drug use was 10 years ago and was methamphetamine, her urine drug screen on admission was positive for opiates , amphetamines and THC. She smokes about a pack of cigarettes per day. Patient appeared very lethargic and febrile at time of my evaluation. She denies any drug use history to me. She denies diarrhea prior to and after admission. She admitted some nausea and dry heaving, but no vomiting. Denies black stools, blood in stools. Colonoscopy: None EGD: None Past Med Surg Social Fam HX - Past Medical History Medical history: hypertension, other Psychiatric history: no psych history - Past Surgical History Surgical History: knee replacement (Right 2013, Left 2009), orthopedic, other ( back surgery x 2, bilateral carpa tunnel surgery), other (infected mammary gland excision) - Social History Smoking Status: Current every day smoker Packs per day: 0.25 Smokeless Tobacco Status: No Alcohol use: none Drug use: none - Family History Mother Adopted: [place]: MAI Age: 58 Family Member Ethnicity: Non- Living Status: Still Living Hx Family Cardiac Disorders: Yes Hx Family Respiratory Disorders: No Hx Family Cancer: Yes (BREAST CANCER, CARVICAL) Hx Family GI Disorders: No Hx Family Genitourinary Disorders: No Hx Family Endocrine Disorder: No Hx Family Musculoskeletal Disorders: No Hx Family Neuromuscular Disorders: No Hx Family Neurologic Disorders: No Hx Family HEENT Disorders: No Hx Family Autoimmune Disorders: No Hx Family Reproductive Disorders: No Hx Family Psychosocial Disorders: No Hx Family Medical Disorders: No - Gastrointestinal NSAID use: None noted Anticoagulation Use: Heparin Gastrointestinal: Present: nausea - Constitutional Constitutional: anorexia, fatigue, fever(s) - EENT Eyes: as per HPI Ears: Present: as per HPI Nose, mouth and throat: Present: as per HPI - Cardiovascular Cardiovascular ROS: Present: as per HPI - Respiratory Respiratory IM: Present: as per HPI - Genitourinary Genitourinary: Present: change in color - Neurological ROS Neurological GI: Present: weakness - Hematologic/Lymphatic Hematologic/Lymphatic pediatric: Present: as per HPI - Musculoskeletal Musculoskeletal ROS GI: Present: as per HPI - Integumentary Integumentary GI: Present: as per HPI - Psychiatric ROS Psychiatric GI: Present: as per HPI - Endocrine Endocrine IM: Present: as per HPI - Constitutional Vitals: Temp Pulse Resp BP Pulse Ox 100.1 F H 125 13 112/71 92 10/07/16 11:18 10/07/16 11:18 10/07/16 11:18 10/07/16 11:18 10/07/16 11:18 General appearance: Present: cooperative, mild distress, A&O X 3, answers questions appropriately - Head Head exam: Present: atraumatic, normocephalic - Eye Eye exam: Present: normal appearance, sclera anicteric - ENT ENT exam: Present: mucous membranes moist - Neck Neck exam general surgery: Present: normal inspection, trachea midline - Respiratory Respiratory exam: Present: CTAB - Cardiovascular Cardiovascular exam: Present: RRR, +S1, +S2 - GI/Abdominal GI/Abdominal exam: Present: soft, tenderness, no peritoneal signs Additional comments: epigastric - Rectal Rectal exam: Present: deferred - Extremities Exam Extremities exam: Present: warm - Neurological Exam Neurological exam: Present: no focal deficits - Psychiatric Psychiatric exam: Present: normal affect, normal mood - Skin Skin exam: Present: diaphoretic, warm Results - Labs CBC & Chem 7: 10/07/16 00:52 10/07/16 00:52 Labs: Last Result Calcium 8.5 mg/dL (8.6-10.8) L 10/07/16 00:52 Troponin I 0.01 ng/mL (0-0.03) 10/07/16 09:22 Urine Opiates Screen Positive ng/mL ([id number]=437) H 10/07/16 09:45 Entire Visit Hgb 12.6 g/dL (11.5-15.4) 10/07/16 00:52 Hct 38.5 % (35.3-44.9) 10/07/16 00:52 PT 12.6 Seconds (9.4-12.1) H 10/06/16 19:18 Total Bilirubin 0.7 mg/dL (0.2-1.2) 10/06/16 19:18 AST 22 Units/L (5-34) 10/06/16 19:18 ALT 20 Units/L (0-55) 10/06/16 19:18 E. coli (PCR) Not Detected (Not Detect) 10/06/16 19:18 - ABG ABG results: PT/INR, D-dimer PT 12.6 Seconds (9.4-12.1) H 10/06/16 19:18 D-Dimer 2559 ng/mLFEU (0-500) H 10/07/16 00:52 - Impressions Impressions Chest CTA 10/07/16 04:46 IMPRESSION: No pulmonary emboli. Scattered ill-defined nodular opacities throughout both lungs without cavitation. Nonetheless, infectious etiologies are considered. Other etiologies are not excluded. D/ / Rory Monsalve MD / Rory Monsalve MD Interpreting Provider: Rory Monsalve MD Consult Discharge Plan - Plan Additional Instructions: Please Follow up with your PCP within 1 week of discharge. Please get a repeat Chest CT in 6-8 Weeks. Referrals: NONE,PCP [Primary Care Provider] - <Dwight Pelaez - Last Filed: 10/12/16 15:29> Date of Encounter: 10/07/16 Time of Encounter: 14:00 - Time Spent With Patient Total time spent is greater than 50% in coordination of care (as documented) at patient's floor/unit and/or counseling patient: GI History of Present Illness - Data of Consult Requesting Physician: Dae Head DO - Consult Narrative History of present illness: Ms. Rosales is a 41 year old female - Constitutional Vitals: Temp Pulse Resp BP Pulse Ox 98.3 F 112 18 119/77 91 10/08/16 11:14 10/08/16 11:14 10/08/16 11:28 10/08/16 11:28 10/08/16 11:28 Results - Labs CBC & Chem 7: 10/08/16 04:45 10/08/16 04:45 Labs: Last Result Calcium 8.4 mg/dL (8.6-10.8) L 10/08/16 04:45 Troponin I 0.03 ng/mL (0-0.03) 10/07/16 21:22 Urine Opiates Screen Positive ng/mL ([id number]) H 10/07/16 09:45 Entire Visit Hgb 10.7 g/dL (11.5-15.4) L D 10/08/16 04:45 Hct 32.4 % (35.3-44.9) L 10/08/16 04:45 PT 12.6 Seconds (9.4-12.1) H 10/06/16 19:18 Total Bilirubin 0.6 mg/dL (0.2-1.2) 10/08/16 04:45 AST 32 Units/L (5-34) 10/08/16 04:45 ALT 38 Units/L (0-55) 10/08/16 04:45 E. coli (PCR) Not Detected (Not Detect) 10/07/16 12:55 - ABG ABG results: PT/INR, D-dimer PT 12.6 Seconds (9.4-12.1) H 10/06/16 19:18 D-Dimer 2559 ng/mLFEU (0-500) H 10/07/16 00:52 - Attending Attestation I have personally seen and examined this patient. Agree with the above documentation.
--- NOTE | 2016-10-07 12:46 | Internal Med Progress Note ---
Date of Encounter: 10/07/16 Time of Encounter: 08:00 - Assessment and plan (1) Staphylococcus aureus bacteremia with sepsis Current Visit: Yes Status: Acute Assessment and plan: 2/2 blood cultures positive with staph aureus. Still in sepsis with tachycardia , tachypnea, lactic acid 2.5. Transfer to higher level of care. Start IV Vanco , give bolus now and cont IV fluids. ID consulted. Repeat lactic acid and echo pending. (2) Pneumonia Current Visit: Yes Status: Acute Assessment and plan: chest CTA with scattered ill-defined nodular opacities throughout both lungs without cavitation, concerning for pneumonia. Treating with Meropenum, Vanco, Levaquin (PCN allergy). Urinary antigens, sputum culture, respiratory PCR pending. Pulm consulted Qualifiers: Pneumonia type: due to other aerobic Gram-negative bacteria Laterality: bilateral Lung location: unspecified part of lung Qualified Code(s): J15.6 - Pneumonia due to other aerobic Gram-negative bacteria (3) UTI (urinary tract infection) Current Visit: Yes Status: Acute Assessment and plan: UA with nitrites, leuk esterase and pyuria. Symptomatic with dysuria. Continue Levaquin, Zosyn. Urine culture pending Qualifiers: Urinary tract infection type: acute cystitis Hematuria presence: without hematuria Qualified Code(s): N30.00 - Acute cystitis without hematuria (4) Chest pain Current Visit: Yes Status: Acute Assessment and plan: Suspect secondary to pneumonia. Chest pain worse with inspiration. Initial troponin negative, continue to cycle troponin, check echo. Consult cardiology if needed. Qualifiers: Chest pain type: chest pain on breathing Qualified Code(s): R07.1 - Chest pain on breathing; R07.81 - Pleurodynia (5) Polysubstance abuse Current Visit: Yes Status: Acute Assessment and plan: UDS positive for opiates, amphetamines, marijuana. Patient denies IV drug use. Cessation advised. (6) DVT prophylaxis Current Visit: No Status: Acute Assessment and plan: heparin - Time Spent With Patient Greater than 35 minutes - Subjective Interval history: Seen and examined at bedside. Patient says she still does not feel well still with fevers cough and left-sided chest pain. Chest pain localized to the left, radiates to back, worse with inspiration. Pain is reproducible on exam. Patient notified of blood culture results, she denies IV drug abuse. Discussed case with Dr. Head, and transferring patient to higher level care with continued sepsis, bacteremia, pneumonia and UTI.. - Constitutional Vitals: Temp Pulse Resp BP Pulse Ox 100.1 F H 125 13 112/71 92 10/07/16 11:18 10/07/16 11:18 10/07/16 11:18 10/07/16 11:18 10/07/16 11:18 General appearance: Present: mild distress, A&O X 3, no acute distress, answers questions appropriately - Head Head exam: Present: atraumatic, normocephalic - Eye Eye exam: Present: PERRL, conjuntiva pink, sclera anicteric Pupils: Present: PERRL - Neck Neck exam general surgery: Present: supple, trachea midline. Absent: lymphadenopathy - Respiratory Respiratory exam: Present: decreased breath sounds, rhonchi. Absent: accessory muscle use, rales, wheezes - Cardiovascular Cardiovascular exam: Present: +S1, +S2, tachycardia. Absent: diastolic murmur, gallop, rubs, systolic murmur - GI/Abdominal GI/Abdominal exam: Present: normal bowel sounds, soft, no peritoneal signs. Absent: distended, tenderness - Extremities Exam Extremities exam: Present: warm, radial pulses palpable and symmetrical. Absent : calf tenderness, cyanotic, pedal edema - Neurological Exam Neurological exam: Present: CN II-XII intact, oriented X3, no focal deficits. Absent: pronater drift, facial droop, speech deficit - Skin Skin exam: Present: dry, intact Internal Medicine: Result - Labs CBC & Chem 7: 10/07/16 00:52 10/07/16 00:52 Labs: Short CBC 10/07/16 Range/Units 00:52 WBC 8.5 (4.3-11.1) K/mcL Hgb 12.6 (11.5-15.4) g/dL Hct 38.5 (35.3-44.9) % Plt Count 92 L (140-400) K/mcL Neutrophils # 6.5 (1.6-8.9) K/mcL BMP 10/07/16 00:52 Sodium 134 L Potassium 3.6 Chloride 104 Carbon Dioxide 19 BUN 17 Creatinine 0.82 Glucose 143 H Calcium 8.5 L Cardiac Enzymes 10/07/16 Range/Units 09:22 Troponin I 0.01 (0-0.03) ng/mL - ABG Interpretation ABG results: PT/INR, D-dimer PT 12.6 Seconds (9.4-12.1) H 10/06/16 19:18 D-Dimer 2559 ng/mLFEU (0-500) H 10/07/16 00:52 - Impressions Impressions Chest CTA 10/07/16 04:46 IMPRESSION: No pulmonary emboli. Scattered ill-defined nodular opacities throughout both lungs without cavitation. Nonetheless, infectious etiologies are considered. Other etiologies are not excluded. D/ / Rory Monsalve MD / Rory Monsalve MD Interpreting Provider: Rory Monsalve MD Consult Discharge Plan - Plan Referrals: NONE,PCP [Primary Care Provider] -
[2016-10-07 13:12] LABS: HIV-1&2 Antibody & p24 Ag Nonreactive (Nonreactive); Hepatitis A Antibody IgM Nonreactive (Nonreactive); Hepatitis B Surface Antigen Nonreactive (Nonreactive)
[2016-10-07 13:13] LABS: Hepatitis B Core IgM Reactive (Nonreactive); Hepatitis C Virus Antibody Reactive (Nonreactive)
--- NOTE | 2016-10-07 13:55 | Pulmonology Consult Note ---
<Maicol Earl - Last Filed: 10/07/16 16:23> Date of Encounter: 10/07/16 Time of Encounter: 13:19 Assessment and Plan (1) Severe sepsis Current Visit: Yes Status: Acute Patient meet three SIRS criteria for fever 100.8 F, tachypnea RR 22, and tachycardia 125. Lactic acid 2.5, repeat 1.3 Urinalysis revealed pyuria and urine culture is pending. CT negative for pyelonephritis. Blood cultures revealed MSSA in both sets. CXR revealed no acute cardiopulmonary process and CT chest revealed scattered ill-defined nodular opacities throughout both lungs without cavitation and a new 0.8 cm x 0.6 cm solid nodule in the right middle lobe. Rocephin increased to 2g IV daily. ID following Recommend ortho consult secondary to h/o left knee replacement and acute left knee swelling (2) Bacteremia Current Visit: Yes Status: Acute Blood cultures revealed MSSA in both sets. Repeat blood cultures pending. (3) Pulmonary nodule Current Visit: Yes Status: Acute CXR revealed no acute cardiopulmonary process and CT chest revealed scattered ill-defined nodular opacities throughout both lungs without cavitation and a new 0.8 cm x 0.6 cm solid nodule in the right middle lobe. (4) IVDU (intravenous drug user) Current Visit: Yes Status: Acute Positive Hep B & C serology. UDS positive for THC, opiates, and amphetamines, Counseled on cessation. (5) UTI (urinary tract infection) Current Visit: Yes Status: Acute Urinalysis revealed pyuria and urine culture is pending. CT negative for pyelonephritis. Qualifiers: Urinary tract infection type: acute cystitis Hematuria presence: without hematuria Qualified Code(s): N30.00 - Acute cystitis without hematuria (6) Tobacco abuse Current Visit: No Status: Chronic History of Present Illness Consult date: 10/07/16 Requesting physician: Estrellita Chatman Reason for consult: pneumonia Chief complaint: Fever History of present illness: Patient is a 41 year old female with a PMH significant for IVDU presented to the ED on for left chest wall pain, left flank pain, and fever for the past 3 days with associated cough, nausea, and vomiting. The left-sided chest wall pain and flank pain started 1 day prior to arrival. The pain was sharp and worse with deep breathing. Patient denies chills, shortness of breath, dysuria, frequency, urgency, leg swelling, leg pain, or recent travel. Patient meet three SIRS criteria for fever 100.8 F, tachypnea RR 22, and tachycardia 125. Urinalysis revealed pyuria and urine culture is pending. CT negative for pyelonephritis. Blood cultures revealed MSSA in both sets. CXR revealed no acute cardiopulmonary process and CT chest revealed scattered ill-defined nodular opacities throughout both lungs without cavitation and a new 0.8 cm x 0.6 cm solid nodule in the right middle lobe. Pulmonology was consulted for pneumonia. Past Med Surg Social Fam HX - Past Medical History Medical history: hypertension, other Psychiatric history: no psych history - Past Surgical History Surgical History: knee replacement (Right 2013, Left 2009), orthopedic, other ( back surgery x 2, bilateral carpa tunnel surgery), other (infected mammary gland excision) - Social History Smoking Status: Current every day smoker Packs per day: 0.25 Smokeless Tobacco Status: No Alcohol use: none Drug use: none - Family History Mother Adopted: [employer] [employer] Age: 58 Family Member Ethnicity: Non- Living Status: Still Living Hx Family Cardiac Disorders: Yes Hx Family Respiratory Disorders: No Hx Family Cancer: Yes (BREAST CANCER, CARVICAL) Hx Family GI Disorders: No Hx Family Genitourinary Disorders: No Hx Family Endocrine Disorder: No Hx Family Musculoskeletal Disorders: No Hx Family Neuromuscular Disorders: No Hx Family Neurologic Disorders: No Hx Family HEENT Disorders: No Hx Family Autoimmune Disorders: No Hx Family Reproductive Disorders: No Hx Family Psychosocial Disorders: No Hx Family Medical Disorders: No Medications and Allergies No Known Home Drugs 10/06/16 [History] 3 Allergy/AdvReac Type Severity Reaction Status Date / Time Penicillins Allergy Hives Verified 10/06/16 16:00 All Systems: A 10-system review of systems was performed and is negative for pertinent findings except as documented above in the HPI. - Constitutional Constitutional: fatigue, fever(s), no chills, no weight gain, no weight loss - EENT Nose, mouth and throat: no sinus pressure - Cardiovascular Cardiovascular: palpitations, no dyspnea, no edema, no lightheadedness - Respiratory Respiratory: cough, pain on inspirtation, no dyspnea on exertion, no wheezing, no chest congestion - Gastrointestinal Gastrointestinal: nausea, vomiting - Genitourinary Genitourinary: no dysuria, no urinary frequency - Musculoskeletal Musculoskeletal: back pain, no arthralgias, no myalgias, no stiffness - Integumentary Integumentary: no erythema, no rash - Neurological Neurological: no dizziness, no numbness, no syncope - Psychiatric Psychiatric: anxiety, no depression - Endocrine Endocrine: fatigue, palpitations, no polydipsia, no polyphagia, no polyuria Physical Examination Vital Signs: Vital Signs, Last 4 Hours Temp Pulse Resp BP Pulse Ox 10/07/16 11:18 100.1 F H 125 13 112/71 92 10/07/16 11:09 18 98 10/07/16 09:30 92 14 110/69 General appearance: no acute distress, alert, other (obese) Eyes: nonicteric ENT: oropharynx moist Neck: no lymphadenopathy, no JVD Effort: normal Inspection: normal Auscultation: bilateral: clear Cardiovascular: other (sinus tachycardia) Integumentary: normal, other (no cellulitis) Extremities: pink and warm, pulses normal, edema (left knee swollen compared to right, warm, no erythema, no proximal streaking), other (prior surgical incisions well healed bilateral anterior knees) Musculoskeletal: no deformities normal mental status, CN II-XII normal mood appropriate, affect normal Results - Laboratory Findings CBC and BMP: 10/07/16 00:52 10/07/16 00:52 PT/INR, D-dimer PT 12.6 Seconds (9.4-12.1) H 10/06/16 19:18 D-Dimer 2559 ng/mLFEU (0-500) H 10/07/16 00:52 Abnormal lab findings: Abnormal lab results MCV 81.6 fL (83.0-100.0) L 10/07/16 00:52 MCH 26.7 pg (28.0-33.3) L 10/07/16 00:52 Plt Count 92 K/mcL (140-400) L 10/07/16 00:52 PT 12.6 Seconds (9.4-12.1) H 10/06/16 19:18 D-Dimer 2559 ng/mLFEU (0-500) H 10/07/16 00:52 Sodium 134 mEq/L (136-145) L 10/07/16 00:52 Glucose 143 mg/dL (70-99) H 10/07/16 00:52 Calcium 8.5 mg/dL (8.6-10.8) L 10/07/16 00:52 Phosphorus 2.1 mg/dL (2.3-4.7) L 10/06/16 19:18 Magnesium 1.5 mg/dL (1.6-2.6) L 10/06/16 19:18 Albumin 3.0 g/dL (3.5-5.0) L 10/06/16 19:18 Globulin 4.2 g/dL (2.4-3.5) H 10/06/16 19:18 Albumin/Globulin Ratio 0.7 (1.1-2.2) L 10/06/16 19:18 Urine Clarity Turbid (Clear) A 10/06/16 19:40 Urine Protein 100 mg/dL (Neg-Trace) H 10/06/16 19:40 Urine Ketones Trace mg/dL (Negative) H 10/06/16 19:40 Urine Blood Moderate (Negative) H 10/06/16 19:40 Urine Nitrite Positive (Negative) A 10/06/16 19:40 Urine Bilirubin Small (Negative) H 10/06/16 19:40 Ur Leukocyte Esterase Moderate (Negative) H 10/06/16 19:40 Urine Microscopic RBC 5-15 per hpf (0-3) H 10/06/16 19:40 Urine Microscopic WBC 15-30 per hpf (0-3) H 10/06/16 19:40 Ur Squamous Epith Cells Many per lpf (None-Few) H 10/06/16 19:40 Urine Bacteria Many per hpf (None-Few) H 10/06/16 19:40 Granular Casts Many per lpf (None Seen) H 10/06/16 19:40 Ur Culture Indicated? YES (NO) A 10/06/16 19:40 Urine Opiates Screen Positive ng/mL (Xsfwbj=422) H 10/07/16 09:45 Ur Amphetamines Screen Positive ng/mL (Bejlre=[id number]) H 10/07/16 09:45 U Marijuana (THC) Screen Positive ng/mL (Cutoff = 50) H 10/07/16 09:45 Hep B Core IgM Ab Reactive (Nonreactive) H 10/07/16 11:43 Hepatitis C Ab Screen Reactive (Nonreactive) H 10/07/16 11:43 Staphylococcus sp PCR DETECTED (Not Detect) A 10/06/16 19:18 Staph aureus (PCR) DETECTED (Not Detect) A 10/06/16 19:18 - Microbiology Findings Microbiology Findings: Microbiology 10/06/16 19:18 Peripheral Venipuncture Blood Culture - Preliminary Staphylococcus aureus 10/06/16 19:18 Peripheral Venipuncture Blood Culture - Preliminary Staphylococcus aureus - Diagnostic Findings Chest x-ray: report reviewed, image reviewed CT scan - chest: report reviewed, image reviewed - Clinical Findings Intake & Output: Intake & Output 10/06/16 10/07/16 10/07/16 23:59 07:59 15:59 Intake Total 1000 / 1000 1000 / 1000 Output Total 200 / 200 400 / 400 Balance 800 / 800 600 / 600 Weight 93.485 kg Consult Discharge Plan - Plan Referrals: NONE,PCP [Primary Care Provider] - <Lyle Mcdowell - Last Filed: 10/07/16 16:46> Date of Encounter: 10/07/16 All Systems: A 10-system review of systems was performed and is negative for pertinent findings except as documented above in the HPI. Physical Examination Vital Signs: Vital Signs, Last 4 Hours Resp Pulse Ox 10/07/16 16:13 18 94 Results - Laboratory Findings CBC and BMP: 10/07/16 00:52 10/07/16 00:52 PT/INR, D-dimer PT 12.6 Seconds (9.4-12.1) H 10/06/16 19:18 D-Dimer 2559 ng/mLFEU (0-500) H 10/07/16 00:52 Abnormal lab findings: Abnormal lab results MCV 81.6 fL (83.0-100.0) L 10/07/16 00:52 MCH 26.7 pg (28.0-33.3) L 10/07/16 00:52 Plt Count 92 K/mcL (140-400) L 10/07/16 00:52 PT 12.6 Seconds (9.4-12.1) H 10/06/16 19:18 D-Dimer 2559 ng/mLFEU (0-500) H 10/07/16 00:52 Sodium 134 mEq/L (136-145) L 10/07/16 00:52 Glucose 143 mg/dL (70-99) H 10/07/16 00:52 Calcium 8.5 mg/dL (8.6-10.8) L 10/07/16 00:52 Phosphorus 2.1 mg/dL (2.3-4.7) L 10/06/16 19:18 Magnesium 1.5 mg/dL (1.6-2.6) L 10/06/16 19:18 Albumin 3.0 g/dL (3.5-5.0) L 10/06/16 19:18 Globulin 4.2 g/dL (2.4-3.5) H 10/06/16 19:18 Albumin/Globulin Ratio 0.7 (1.1-2.2) L 10/06/16 19:18 Urine Clarity Turbid (Clear) A 10/06/16 19:40 Urine Protein 100 mg/dL (Neg-Trace) H 10/06/16 19:40 Urine Ketones Trace mg/dL (Negative) H 10/06/16 19:40 Urine Blood Moderate (Negative) H 10/06/16 19:40 Urine Nitrite Positive (Negative) A 10/06/16 19:40 Urine Bilirubin Small (Negative) H 10/06/16 19:40 Ur Leukocyte Esterase Moderate (Negative) H 10/06/16 19:40 Urine Microscopic RBC 5-15 per hpf (0-3) H 10/06/16 19:40 Urine Microscopic WBC 15-30 per hpf (0-3) H 10/06/16 19:40 Ur Squamous Epith Cells Many per lpf (None-Few) H 10/06/16 19:40 Urine Bacteria Many per hpf (None-Few) H 10/06/16 19:40 Granular Casts Many per lpf (None Seen) H 10/06/16 19:40 Ur Culture Indicated? YES (NO) A 10/06/16 19:40 Urine Opiates Screen Positive ng/mL (Obkput=985) H 10/07/16 09:45 Ur Amphetamines Screen Positive ng/mL (Lsmloo=7673) H 10/07/16 09:45 U Marijuana (THC) Screen Positive ng/mL (Cutoff = 50) H 10/07/16 09:45 Hep B Core IgM Ab Reactive (Nonreactive) H 10/07/16 11:43 Hepatitis C Ab Screen Reactive (Nonreactive) H 10/07/16 11:43 Staphylococcus sp PCR DETECTED (Not Detect) A 10/06/16 19:18 Staph aureus (PCR) DETECTED (Not Detect) A 10/06/16 19:18 - Clinical Findings Intake & Output: Intake & Output 10/07/16 10/07/16 10/07/16 07:59 15:59 23:59 Intake Total 1000 / 2000 Balance 1000 / 1600 - Attending Attestation I examined this patient and my medical decision-making was reviewed with the Resident Physician. I agree with the documented findings, disposition and treatment plan as described except to the extent set forth below. Patient seen and examined. Labs, radiology, chart personally reviewed. 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 Patient with some respiratory distress, however she is maintaining her minute ventilation. Cardiovascular: stable GI: Nutrition per dietary and GI prophylaxis per routine Heme: DVT prophylaxis per routine ID: Continue antibiotics and plan to de-escalation. Patient with bacteremia and the source is not clear to me, however her left knee is of concern since it is more swollen and limited range of motion and she does have according to her replacement and I am concerned that could be disorders or infection could be seated in her joints. I discussed with orthopedic for an evaluation and even possible aspiration. Renal; urine out put and renal funtion reviewed Endorcine: blood glucose is monitored Lines: all lines checked and no evidence of infections Skin: skin care to prevent pressure ulcers per nursing routine care. She has some areas of scabs on her skin and when I ask her about those lesions, she stated she doesn't know what are those. Patient condition could deteriorate and close monitoring is required with antibiotics.
[2016-10-07] MEDS ORDERED: Piperacillin/Tazobactam 3.375 GM in D5% in Water (Mini-Bag+) 100 ML IVPB SCH (16:00)
[2016-10-07] MEDS ORDERED: Sennosides/Docusate Sodium TABLET PO PRN (21:29)
[2016-10-07] MEDS ORDERED: *HR* OxyCODONE/APAP 5/325 TABLET PO ONE (21:29)
--- NOTE | 2016-10-07 22:34 | Orthopedic Consult Note ---
Date of Encounter: 10/07/16 Time of Encounter: 22:29 History of Present Illness Chief complaint: Bilateral knee swelling, left greater than right HPI: Ms. Rosales is a 41 year old female with a history of bilateral knee replacements in the past the left 3 years ago and the right 6 years ago. These were performed at an outside facility. The patient is currently bacteremic with staph aureus. I have been asked to see the patient in regards to her recent left greater than right knee swelling for an arthrocentesis to see if there is a knee infection as a possible etiology for her bacteremia. Patient states that the left knee began bothering her just recently. Denies any trauma to the knees. For complete history and physical data please refer to the complete portion of the medical record. Pertinent orthopedic examination reveals well-functioning bilateral knees. There are well-healed midline incisions over both knees. No evidence of overt instability. There is a mild effusion on the left a minimal effusion on the right. No significant soft tissue involvement. Patient does have staph aureus on blood cultures recently obtained. Impression: Bilateral knee effusions, status post bilateral total knee arthroplasties with rule out septic process Treatment: After informed consent was obtained each knee was separately prepped with ChloraPrep and then with a direct lateral approach each knee was aspirated of synovial fluid. The right knee showed clear thick carina synovial fluid. The left knee revealed slightly pink tinged thick clear synovial fluid. I aspirated about 30 mL from the left and approximately 5 mL on the right. These will be sent for culture analysis. Would utilize ice as needed for pain in the knees over the next day or so. We will follow-up as needed especially if cultures are positive. Thank you very much for allowing me to see and care for Ms. Rosales. Sincerely, Brennen Calderon,DO Past Med Surg Social Fam HX - Past Medical History Medical history: hypertension, other Psychiatric history: no psych history - Past Surgical History Surgical History: knee replacement (Right 2013, Left 2009), orthopedic, other ( back surgery x 2, bilateral carpa tunnel surgery), other (infected mammary gland excision) - Social History Smoking Status: Current every day smoker Packs per day: 0.25 Smokeless Tobacco Status: No Alcohol use: none Drug use: none - Family History Mother Adopted: [employer] Age: 58 Family Member Ethnicity: Non- Living Status: Still Living Hx Family Cardiac Disorders: Yes Hx Family Respiratory Disorders: No Hx Family Cancer: Yes (BREAST CANCER, CARVICAL) Hx Family GI Disorders: No Hx Family Genitourinary Disorders: No Hx Family Endocrine Disorder: No Hx Family Musculoskeletal Disorders: No Hx Family Neuromuscular Disorders: No Hx Family Neurologic Disorders: No Hx Family HEENT Disorders: No Hx Family Autoimmune Disorders: No Hx Family Reproductive Disorders: No Hx Family Psychosocial Disorders: No Hx Family Medical Disorders: No Medications and Allergies No Known Home Drugs 10/06/16 [History] 3 Allergy/AdvReac Type Severity Reaction Status Date / Time Penicillins Allergy Hives Verified 10/06/16 16:00 All Systems Reviewed: A 10-system review of systems was performed and is negative for pertinent findings except as documented above in the HPI. Physical Exam - Constitutional Vitals: Temp Pulse Resp BP Pulse Ox 98.5 F 121 20 105/71 91 10/07/16 19:53 10/07/16 19:53 10/07/16 20:05 10/07/16 19:53 10/07/16 20:05 General appearance IM: cooperative, mild distress, A&O X 3, answers questions appropriately Results - Labs Result Diagrams: 10/07/16 00:52 10/07/16 00:52 Labs: Abnormal lab results MCV 81.6 fL (83.0-100.0) L 10/07/16 00:52 MCH 26.7 pg (28.0-33.3) L 10/07/16 00:52 Plt Count 92 K/mcL (140-400) L 10/07/16 00:52 PT 12.6 Seconds (9.4-12.1) H 10/06/16 19:18 D-Dimer 2559 ng/mLFEU (0-500) H 10/07/16 00:52 Sodium 134 mEq/L (136-145) L 10/07/16 00:52 Glucose 143 mg/dL (70-99) H 10/07/16 00:52 Calcium 8.5 mg/dL (8.6-10.8) L 10/07/16 00:52 Phosphorus 2.1 mg/dL (2.3-4.7) L 10/06/16 19:18 Magnesium 1.5 mg/dL (1.6-2.6) L 10/06/16 19:18 Albumin 3.0 g/dL (3.5-5.0) L 10/06/16 19:18 Globulin 4.2 g/dL (2.4-3.5) H 10/06/16 19:18 Albumin/Globulin Ratio 0.7 (1.1-2.2) L 10/06/16 19:18 Urine Clarity Turbid (Clear) A 10/06/16 19:40 Urine Protein 100 mg/dL (Neg-Trace) H 10/06/16 19:40 Urine Ketones Trace mg/dL (Negative) H 10/06/16 19:40 Urine Blood Moderate (Negative) H 10/06/16 19:40 Urine Nitrite Positive (Negative) A 10/06/16 19:40 Urine Bilirubin Small (Negative) H 10/06/16 19:40 Ur Leukocyte Esterase Moderate (Negative) H 10/06/16 19:40 Urine Microscopic RBC 5-15 per hpf (0-3) H 10/06/16 19:40 Urine Microscopic WBC 15-30 per hpf (0-3) H 10/06/16 19:40 Ur Squamous Epith Cells Many per lpf (None-Few) H 10/06/16 19:40 Urine Bacteria Many per hpf (None-Few) H 10/06/16 19:40 Granular Casts Many per lpf (None Seen) H 10/06/16 19:40 Ur Culture Indicated? YES (NO) A 10/06/16 19:40 Urine Opiates Screen Positive ng/mL (Kclyyh=284) H 10/07/16 09:45 Ur Amphetamines Screen Positive ng/mL (Zasbvg=[id number]) H 10/07/16 09:45 U Marijuana (THC) Screen Positive ng/mL (Cutoff = 50) H 10/07/16 09:45 Hep B Core IgM Ab Reactive (Nonreactive) H 10/07/16 11:43 Hepatitis C Ab Screen Reactive (Nonreactive) H 10/07/16 11:43 Staphylococcus sp PCR DETECTED (Not Detect) A 10/06/16 19:18 Staph aureus (PCR) DETECTED (Not Detect) A 10/06/16 19:18 All other labs normal. Consult Discharge Plan - Plan Referrals: NONE,PCP [Primary Care Provider] -
[2016-10-08] MEDS: 0.9 % Sodium Chloride 1,000 ML IVC SCH ×2 (02:23→15:41)
[2016-10-08 03:26] LABS: Enterococcus by PCR Not Detected (Not Detect); mecA Methicillin-Resist Gene Not Detected (Not Detect)
[2016-10-08 03:27] LABS: Acinetobacter baumannii by PCR Not Detected (Not Detect); Candida albicans by PCR Not Detected (Not Detect); Candida glabrata by PCR Not Detected (Not Detect); Candida krusei by PCR Not Detected (Not Detect); Candida parapsilosis by PCR Not Detected (Not Detect); Candida tropicalis by PCR Not Detected (Not Detect); Escherichia coli by PCR Not Detected (Not Detect); Klebsiella oxytoca by PCR Not Detected (Not Detect); Klebsiella pneumoniae by PCR Not Detected (Not Detect); Pseudomonas aeruginosa by PCR Not Detected (Not Detect); Serratia marcescens by PCR Not Detected (Not Detect); Staphylococcus aureus by PCR ***DETECTED*** (Not Detect); Streptococcus agalactiae(B)PCR Not Detected (Not Detect); Streptococcus by PCR Not Detected (Not Detect); Streptococcus pneumoniae PCR Not Detected (Not Detect); Streptococcus pyogenes (A) PCR Not Detected (Not Detect)
[2016-10-08] MEDS: Ipratropium/Albuterol Neb 3 ML IH SCH ×3 (04:06→11:28)
[2016-10-08] MEDS: *HR* Heparin 5,000 UNIT/ML VIAL SQ SCH (04:37)
[2016-10-08] MEDS: *HR* OxyCODONE/APAP 5/325 TABLET PO PRN ×2 (04:37→11:11)
[2016-10-08 04:59] LABS: Hematocrit 32.4 % (35.3-44.9); Mean Corpuscular Hemoglobin 27.1 pg (28.0-33.3); Mean Platelet Volume 12.4 fL (9.4-12.4); Red Blood Count 3.95 M/mcL (3.82-4.97); Red Cell Distribution Width 14.8 % (11.5-14.5)
[2016-10-08 05:01] LABS: Hemoglobin 10.7 g/dL (11.5-15.4); Platelet Count 70 K/mcL (140-400)
[2016-10-08 05:13] LABS: Alanine Aminotransferase 38 Units/L (0-55); Albumin 2.4 g/dL (3.5-5.0); Albumin/Globulin Ratio 0.6 (1.1-2.2); Alkaline Phosphatase 110 Units/L (38-126); Aspartate Amino Transferase 32 Units/L (5-34); BUN/Creatinine Ratio 14 (6-26); Bilirubin,Total 0.6 mg/dL (0.2-1.2); Blood Urea Nitrogen 10 mg/dL (7-20); Calcium 8.4 mg/dL (8.6-10.8); Carbon Dioxide 21 mEq/L (19-29); Chloride 107 mEq/L (98-109); Globulin 3.7 g/dL (2.4-3.5); Glucose 121 mg/dL (70-99); Osmolality,Calculated 282 (280-300); Potassium 3.8 mEq/L (3.5-4.5); Sodium 136 mEq/L (136-145); Total Protein 6.1 g/dL (6.0-8.3); eGFR For African Americans > 60 (> 60); eGFR For Non-African Americans > 60 (> 60)
[2016-10-08] MEDS: Nicotine 21 MG PATCH.TD24 TD SCH (08:57)
[2016-10-08] MEDS ORDERED: Levofloxacin 750 MG/150 ML 750 MG/150 ML BAG IVPB SCH (09:00)
--- NOTE | 2016-10-08 09:16 | Pulmonology Progress Note ---
Date of Encounter: 10/08/16 Time of Encounter: 08:00 Assessment and Plan (1) Bacteremia Current Visit: Yes Status: Acute Patient clinically is feeling better today, however blood culture remained positive and to follow-up with the next blood culture. Appreciate orthopedics help and follow-up on the fluid analysis from both knees especially left side. Continue current antibiotics and I suspect patient will need ANDRES. Will follow- up up when necessary and please call for any questions. (2) Pulmonary nodule Current Visit: Yes Status: Acute I suspect this is septic emboli and treatment is antibiotics, however patient has history of smoking and she was counseled to quit smoking and outpatient follow-up is important to repeat CT chest in about 6-8 weeks. (3) Pneumonia Current Visit: Yes Status: Acute Patient is on appropriate antibiotics and she needs incentive spirometry. One more time thank you for consultation and please do not hesitate to call for any questions. Qualifiers: Pneumonia type: due to other aerobic Gram-negative bacteria Laterality: bilateral Lung location: unspecified part of lung Qualified Code(s): J15.6 - Pneumonia due to other aerobic Gram-negative bacteria Subjective Principal diagnosis: Sepsis Interval history: Patient had aspiration of synovial fluid and she is feeling better today Objective PUL Vital signs: Last Vital Signs Temp 98.2 F 10/08/16 06:49 Pulse 107 10/08/16 06:49 Resp 16 10/08/16 06:49 BP 111/68 10/08/16 06:49 Pulse Ox 91 10/08/16 06:49 General appearance: no acute distress Eyes: nonicteric ENT: oropharynx moist Mallampati (class): 3 Neck: supple, no lymphadenopathy Effort: normal Auscultation: bilateral: clear Percussion: bilateral: not dull Cardiovascular: regular rate and rhythm Gastrointestinal: normoactive bowel sounds, non-distended Extremities: no cyanosis, other (Bilateral knees have a Band-Aid from site of respiration) Musculoskeletal: joint tenderness (Left more than right) normal mental status, non-focal exam mood appropriate Results - Laboratory Findings CBC and BMP: 10/08/16 04:45 10/08/16 04:45 PT/INR, D-dimer PT 12.6 Seconds (9.4-12.1) H 10/06/16 19:18 D-Dimer 2559 ng/mLFEU (0-500) H 10/07/16 00:52 Abnormal lab findings: Abnormal lab results Hgb 10.7 g/dL (11.5-15.4) L D 10/08/16 04:45 Hct 32.4 % (35.3-44.9) L 10/08/16 04:45 MCV 82.0 fL (83.0-100.0) L 10/08/16 04:45 MCH 27.1 pg (28.0-33.3) L 10/08/16 04:45 RDW 14.8 % (11.5-14.5) H 10/08/16 04:45 Plt Count 70 K/mcL (140-400) L 10/08/16 04:45 PT 12.6 Seconds (9.4-12.1) H 10/06/16 19:18 D-Dimer 2559 ng/mLFEU (0-500) H 10/07/16 00:52 Glucose 121 mg/dL (70-99) H 10/08/16 04:45 Calcium 8.4 mg/dL (8.6-10.8) L 10/08/16 04:45 Phosphorus 2.1 mg/dL (2.3-4.7) L 10/06/16 19:18 Magnesium 1.5 mg/dL (1.6-2.6) L 10/06/16 19:18 Albumin 2.4 g/dL (3.5-5.0) L 10/08/16 04:45 Globulin 3.7 g/dL (2.4-3.5) H 10/08/16 04:45 Albumin/Globulin Ratio 0.6 (1.1-2.2) L 10/08/16 04:45 Urine Clarity Turbid (Clear) A 10/06/16 19:40 Urine Protein 100 mg/dL (Neg-Trace) H 10/06/16 19:40 Urine Ketones Trace mg/dL (Negative) H 10/06/16 19:40 Urine Blood Moderate (Negative) H 10/06/16 19:40 Urine Nitrite Positive (Negative) A 10/06/16 19:40 Urine Bilirubin Small (Negative) H 10/06/16 19:40 Ur Leukocyte Esterase Moderate (Negative) H 10/06/16 19:40 Urine Microscopic RBC 5-15 per hpf (0-3) H 10/06/16 19:40 Urine Microscopic WBC 15-30 per hpf (0-3) H 10/06/16 19:40 Ur Squamous Epith Cells Many per lpf (None-Few) H 10/06/16 19:40 Urine Bacteria Many per hpf (None-Few) H 10/06/16 19:40 Granular Casts Many per lpf (None Seen) H 10/06/16 19:40 Ur Culture Indicated? YES (NO) A 10/06/16 19:40 Urine Opiates Screen Positive ng/mL (Exninb=481) H 10/07/16 09:45 Ur Amphetamines Screen Positive ng/mL (Vfgyje=5551) H 10/07/16 09:45 U Marijuana (THC) Screen Positive ng/mL (Cutoff = 50) H 10/07/16 09:45 Hep B Core IgM Ab Reactive (Nonreactive) H 10/07/16 11:43 Hepatitis C Ab Screen Reactive (Nonreactive) H 10/07/16 11:43 Staphylococcus sp PCR DETECTED (Not Detect) A 10/07/16 12:55 Staph aureus (PCR) DETECTED (Not Detect) A 10/07/16 12:55 - Microbiology Findings Microbiology Findings: Microbiology, Last 48 Hours 10/07/16 12:55 Blood Culture - Preliminary Peripheral Venipuncture Gram Positive Cocci - Clinical Findings Intake & Output: Intake & Output 10/07/16 10/08/16 10/08/16 23:59 07:59 15:59 Intake Total 440 / 440 1000 / 1000 460 / 460 Output Total 300 / 300 300 / 300 Balance 140 / 140 700 / 700 460 / 460 Weight 95.8 kg Consult Discharge Plan - Plan Referrals: NONE,PCP [Primary Care Provider] -
--- NOTE | 2016-10-08 10:27 | Internal Med Progress Note ---
<Jose Dooley - Last Filed: 10/08/16 10:54> Date of Encounter: 10/08/16 Time of Encounter: 10:24 - Assessment and plan (1) Staphylococcus aureus bacteremia with sepsis Current Visit: Yes Status: Acute Assessment and plan: Patient presented with Fever, tachycardia, tachypnea afebrile since 19:53 on 10/07, no tachpnyea since admission, still tachycardic. Initial Bcx 10/06 grew Staph aureus 2/2 Second set of Bcx 10/07 still positive. Patient also with UTI growing e.coli Patient also has hx of B/l knee replacements and had b/l knee swelling. both knees aspirated yesterday fluid analysis pending. TTE did not show any signs of endocarditis, but will likely need a ANDRES prior to discharge. continue IV fluids. Continue ceftriaxone (2) Pulmonary nodule Current Visit: Yes Status: Acute Assessment and plan: likely septic emboli. continue plan per above. will need repeat CT chest in 6-8 weeks. (3) UTI (urinary tract infection) Current Visit: Yes Status: Acute Assessment and plan: UA showed: nitrites, leuk esterase and pyuria. Patient is Symptomatic with dysuria. Urine culture growing e.coli. Continue ceftriaxone. Qualifiers: Urinary tract infection type: acute cystitis Hematuria presence: without hematuria Qualified Code(s): N30.00 - Acute cystitis without hematuria (4) IVDU (intravenous drug user) Current Visit: Yes Status: Acute Assessment and plan: Pt with hx of IVDU. Pt UDS positive for THC, opiates, and amphetamines, Pt postive fro Hep B &C, negative for HIV. Pt has been counseled on cessation. - Subjective Interval history: Patient reports feeling a bit better overall. Patient reports some pleuritic chest pain, and reports she is due for her pain medication. Patient reports her breathing is improved. - Constitutional Vitals: Temp Pulse Resp BP Pulse Ox 98.2 F 107 16 111/68 91 10/08/16 06:49 10/08/16 06:49 10/08/16 06:49 10/08/16 06:49 10/08/16 06:49 General appearance: Present: A&O X 3, no acute distress, obese, answers questions appropriately - Head Head exam: Present: atraumatic, normocephalic - Eye Eye exam: Present: conjuntiva pink, sclera anicteric - Neck Neck exam general surgery: Present: supple, trachea midline - Respiratory Respiratory exam: Present: CTAB, tachypnea. Absent: accessory muscle use, rales , rhonchi, wheezes - Cardiovascular Cardiovascular exam: Present: +S1, +S2, tachycardia. Absent: diastolic murmur, gallop, rubs, systolic murmur Additional comments: NSR - GI/Abdominal GI/Abdominal exam: Present: normal bowel sounds, soft, no peritoneal signs. Absent: distended, tenderness - Extremities Exam Extremities exam: Absent: calf tenderness, cyanotic, pedal edema Additional comments: B/L knees warmer than rest of legs. No erythema visible. Bandaids on b/l knees s /p tapping og joints by ortho. - Neurological Exam Neurological exam: Present: alert, oriented X3. Absent: facial droop, speech deficit - Skin Skin exam: Present: dry, intact, warm Internal Medicine: Result - Labs CBC & Chem 7: 10/08/16 04:45 10/08/16 04:45 Labs: Short CBC 10/08/16 Range/Units 04:45 WBC 8.5 (4.3-11.1) K/mcL Hgb 10.7 L D (11.5-15.4) g/dL Hct 32.4 L (35.3-44.9) % Plt Count 70 L (140-400) K/mcL BMP 10/08/16 04:45 Sodium 136 Potassium 3.8 Chloride 107 Carbon Dioxide 21 BUN 10 Creatinine 0.70 Glucose 121 H Calcium 8.4 L Cardiac Enzymes 10/07/16 10/07/16 Range/Units 13:40 21:22 Troponin I 0.00 0.03 (0-0.03) ng/mL Liver Function 10/08/16 Range/Units 04:45 Total Bilirubin 0.6 (0.2-1.2) mg/dL AST 32 (5-34) Units/L ALT 38 (0-55) Units/L Alkaline Phosphatase 110 (38-126) Units/L Albumin 2.4 L (3.5-5.0) g/dL - ABG Interpretation ABG results: PT/INR, D-dimer PT 12.6 Seconds (9.4-12.1) H 10/06/16 19:18 D-Dimer 2559 ng/mLFEU (0-500) H 10/07/16 00:52 Consult Discharge Plan - Plan Additional Instructions: Please Follow up with your PCP within 1 week of discharge. Please get a repeat Chest CT in 6-8 Weeks. Referrals: NONE,PCP [Primary Care Provider] - <Dae Head - Last Filed: 10/08/16 15:37> Date of Encounter: 10/08/16 - Assessment and plan (1) Staphylococcus aureus bacteremia with sepsis Current Visit: Yes Status: Acute (2) UTI (urinary tract infection) Current Visit: Yes Status: Acute Qualifiers: Urinary tract infection type: acute cystitis Hematuria presence: without hematuria Qualified Code(s): N30.00 - Acute cystitis without hematuria (3) Tachycardia Current Visit: No Status: Acute (4) Pulmonary nodule Current Visit: Yes Status: Acute (5) Polysubstance abuse Current Visit: Yes Status: Chronic (6) Bilateral knee effusions Current Visit: Yes Status: Acute (7) Scalp abscess Current Visit: No Status: Acute (8) Tobacco abuse Current Visit: No Status: Chronic - Constitutional Vitals: Temp Pulse Resp BP Pulse Ox 98.3 F 112 22 119/77 90 10/08/16 11:14 10/08/16 11:14 10/08/16 11:14 10/08/16 11:14 10/08/16 11:14 Internal Medicine: Result - Labs CBC & Chem 7: 10/08/16 04:45 10/08/16 04:45 Labs: Short CBC 10/08/16 Range/Units 04:45 WBC 8.5 (4.3-11.1) K/mcL Hgb 10.7 L D (11.5-15.4) g/dL Hct 32.4 L (35.3-44.9) % Plt Count 70 L (140-400) K/mcL BMP 10/08/16 04:45 Sodium 136 Potassium 3.8 Chloride 107 Carbon Dioxide 21 BUN 10 Creatinine 0.70 Glucose 121 H Calcium 8.4 L Cardiac Enzymes 10/07/16 Range/Units 21:22 Troponin I 0.03 (0-0.03) ng/mL Liver Function 10/08/16 Range/Units 04:45 Total Bilirubin 0.6 (0.2-1.2) mg/dL AST 32 (5-34) Units/L ALT 38 (0-55) Units/L Alkaline Phosphatase 110 (38-126) Units/L Albumin 2.4 L (3.5-5.0) g/dL - ABG Interpretation ABG results: PT/INR, D-dimer PT 12.6 Seconds (9.4-12.1) H 10/06/16 19:18 D-Dimer 2559 ng/mLFEU (0-500) H 10/07/16 00:52 - Attending Attestation Please see discharge summary of this date.
[2016-10-08 11:26] VITALS: BP 119/77
--- NOTE | 2016-10-08 12:17 | Orthopedics Progress Note ---
Date of Encounter: 10/08/16 Time of Encounter: 12:16 Subjective Principal diagnosis: Sepsis Interval history: Arthrocentesis of both knees performed last night. No results are available at this time. Further recommendations will be made pending the results. Noted that patient has persistent positive blood cultures. Objective Vital signs: Vital Signs Temp Pulse Resp BP Pulse Ox 10/08/16 11:14 98.3 F 112 22 119/77 90 10/08/16 06:49 98.2 F 107 16 111/68 91 10/08/16 04:06 20 93 10/08/16 03:45 99.1 F 110 17 102/68 92 10/08/16 01:00 98.8 F 114 18 105/69 93 10/07/16 23:56 94 10/07/16 23:55 18 94 10/07/16 20:05 20 91 10/07/16 19:53 98.5 F 121 17 105/71 92 10/07/16 17:39 100.3 F H 120 18 133/79 91 10/07/16 16:56 102.3 F H 122 18 107/69 86 10/07/16 16:13 18 94 Intake and Output 10/07/16 10/08/16 10/08/16 23:59 07:59 15:59 Intake Total 440 / 440 1000 / 1000 460 / 460 Output Total 300 / 300 300 / 300 400 / 400 Balance 140 / 140 700 / 700 60 / 60 Intake: IV Fluids 1000 / 1000 0.9 % Sodium Chloride 1, 1000 / 1000 000 ML @ 100 mls/hr IVC . Q10H MOUSTAPHA Rx#:[id number] Oral 440 / 440 460 / 460 Output: Urine 300 / 300 300 / 300 400 / 400 Other: Meal Dinner Breakfast Percent of Meal Consumed 75% 100% # Voids 1 Weight 95.8 kg Patient Weight 10/08/16 23:59 Weight 95.8 kg - Labs CBC & BMP: 10/08/16 04:45 10/08/16 04:45 Labs: Abnormal lab results Hgb 10.7 g/dL (11.5-15.4) L D 10/08/16 04:45 Hct 32.4 % (35.3-44.9) L 10/08/16 04:45 MCV 82.0 fL (83.0-100.0) L 10/08/16 04:45 MCH 27.1 pg (28.0-33.3) L 10/08/16 04:45 RDW 14.8 % (11.5-14.5) H 10/08/16 04:45 Plt Count 70 K/mcL (140-400) L 10/08/16 04:45 PT 12.6 Seconds (9.4-12.1) H 10/06/16 19:18 D-Dimer 2559 ng/mLFEU (0-500) H 10/07/16 00:52 Glucose 121 mg/dL (70-99) H 10/08/16 04:45 Calcium 8.4 mg/dL (8.6-10.8) L 10/08/16 04:45 Phosphorus 2.1 mg/dL (2.3-4.7) L 10/06/16 19:18 Magnesium 1.5 mg/dL (1.6-2.6) L 10/06/16 19:18 Albumin 2.4 g/dL (3.5-5.0) L 10/08/16 04:45 Globulin 3.7 g/dL (2.4-3.5) H 10/08/16 04:45 Albumin/Globulin Ratio 0.6 (1.1-2.2) L 10/08/16 04:45 Urine Clarity Turbid (Clear) A 10/06/16 19:40 Urine Protein 100 mg/dL (Neg-Trace) H 10/06/16 19:40 Urine Ketones Trace mg/dL (Negative) H 10/06/16 19:40 Urine Blood Moderate (Negative) H 10/06/16 19:40 Urine Nitrite Positive (Negative) A 10/06/16 19:40 Urine Bilirubin Small (Negative) H 10/06/16 19:40 Ur Leukocyte Esterase Moderate (Negative) H 10/06/16 19:40 Urine Microscopic RBC 5-15 per hpf (0-3) H 10/06/16 19:40 Urine Microscopic WBC 15-30 per hpf (0-3) H 10/06/16 19:40 Ur Squamous Epith Cells Many per lpf (None-Few) H 10/06/16 19:40 Urine Bacteria Many per hpf (None-Few) H 10/06/16 19:40 Granular Casts Many per lpf (None Seen) H 10/06/16 19:40 Ur Culture Indicated? YES (NO) A 10/06/16 19:40 Urine Opiates Screen Positive ng/mL (Zhpqtl=628) H 10/07/16 09:45 Ur Amphetamines Screen Positive ng/mL (Cgkwcf=9636) H 10/07/16 09:45 U Marijuana (THC) Screen Positive ng/mL (Cutoff = 50) H 10/07/16 09:45 Hep B Core IgM Ab Reactive (Nonreactive) H 10/07/16 11:43 Hepatitis C Ab Screen Reactive (Nonreactive) H 10/07/16 11:43 Staphylococcus sp PCR DETECTED (Not Detect) A 10/07/16 12:55 Staph aureus (PCR) DETECTED (Not Detect) A 10/07/16 12:55 Consult Discharge Plan - Plan Additional Instructions: Please Follow up with your PCP within 1 week of discharge. Please get a repeat Chest CT in 6-8 Weeks. Referrals: NONE,PCP [Primary Care Provider] -
[2016-10-08] MEDS ORDERED: *HR* Morphine 2 MG/ML SYRINGE IVP ONE (14:44)
[2016-10-08] MEDS: *HR* Morphine 2 MG/ML SYRINGE IVP ONE (14:55)
--- NOTE | 2016-10-08 15:19 | Discharge Summary ---
Date of Encounter: 10/08/16 Time of Encounter: 15:17 - Discharge Diagnosis (1) Staphylococcus aureus bacteremia with sepsis Priority: Primary Status: Acute (2) UTI (urinary tract infection) Priority: Primary Status: Acute Qualifiers: Urinary tract infection type: acute cystitis Hematuria presence: without hematuria Qualified Code(s): N30.00 - Acute cystitis without hematuria (3) Tachycardia Priority: Secondary Status: Acute (4) Pulmonary nodule Priority: Secondary Status: Acute (5) Polysubstance abuse Priority: Secondary Status: Chronic (6) Bilateral knee effusions Priority: Primary Status: Acute (7) Scalp abscess Priority: Secondary Status: Acute (8) Tobacco abuse Priority: Secondary Status: Chronic - Discharge Medications Home Medications: No Known Home Drugs 10/06/16 [History] Allergies/Adverse Reactions: 3 Allergy/AdvReac Type Severity Reaction Status Date / Time Penicillins Allergy Hives Verified 10/06/16 16:00 Date of admission: 10/07/16 12:29 Primary care physician: PCP NONE Consults: 10/07/16 12:55 Consult to Pulmonology [CONS] Routine Consulting Provider: [facility] Reason for Consult: pneumonia Call Completed: Yes 10/07/16 16:31 Consult to Orthopedic Surgery [CONS] Routine Consulting Provider: [facility] Reason for Consult: left knee swollen, severe sepsis, prior knee replacement Call Completed: Yes Discharging clinician: Dae Head Anticipated date of discharge: 10/08/16 - Patient Status Disposition: Transfer Short-Term Hosp Condition: Fair Functional capacity at discharge: independent ambulation Overall status at discharge: other - Discharge Instructions Follow Up With: NONE,PCP [Primary Care Provider] - Additional Instructions: Please Follow up with your PCP within 1 week of discharge. Please get a repeat Chest CT in 6-8 Weeks. - Diet and Activity Activity: other Diet: regular diet Hospital course: Ms. Rosales is a 41 year old female with hx of HTN who presented to ED on 10/06 with complaints of fever and L chest pain. Fever started 3 days prior to presentation. Temp was greater than 102. She was admitted for further evaluation and treatment. Ms. Rosales was admitted to med surg. As her urine was positive she was felt to be septic and started on IV abx. Due to positive D dimer CTA of chest was performed which showed nodule. Blood cultures returned positive for MSSA and she was seen by ID and abx adjusted. There was concern at that time that the pulmonary nodule is a septic emboli. Urine was positive for E coli - sensitivities pending. Pt reported IVDU was 10 years ago but UDS was positive for THC, amphetamines and opiates. She returned positive for prior Hep B and Hep C. CT of her abd showed possible low grade enteritis and she was seen by ID. She had no specific symptoms so no changes made in therapy. On the day after admission she had some hypotension and lactate increased. She was transferred to [facility] and responded to IV fluid boluses. She has a prior history of bilateral knee replacements and both knees were warm and swollen. She was evaluated by ortho and had bilateral arthrocentesis. Studies are pending. On 10/08 her second set of blood cultures remain positive for gram positive cocci. TTE was negative for vegetation. In the afternoon pt's sendy suddenly came to the nurse's station and announced she was leaving [place] and going to [place]. I spoke to patient and she wanted to go to [place] because "everything I have had done was there and that is where I and my family always go." At that time she was sitting on the edge of her bed in obvious acute distress. Her respiratory rate was approx 30. Her heart rate was 118 and her oxygen saturation was initially 88% on RA. She insisted she was leaving and I explained that she currently was quite ill and her risk of in travel was high. She agreed to let me contact [place] for transfer if she is insistent and it would be safer. I did explain that they may not accept her in transfer. After discussion with [place] transfer center they agreed to accept her as she may need further intervention including ANDRES and maybe with her knees. - Time Spent with Patient Total time spent providing and/or coordinating discharge services: 49min - Constitutional Vitals: Temp Pulse Resp BP Pulse Ox 98.3 F 112 22 119/77 90 10/08/16 11:14 10/08/16 11:14 10/08/16 11:14 10/08/16 11:14 10/08/16 11:14 General appearance: Present: A&O X 3, obese, severe distress, answers questions appropriately - Head Head exam: Present: normocephalic - Eye Eye exam: Present: EOMI, conjuntiva pink - ENT ENT exam: Present: mucous membranes moist - Respiratory Respiratory exam: Present: tachypnea - Cardiovascular Cardiovascular exam: Present: tachycardia - GI/Abdominal GI/Abdominal exam: Present: soft - Extremities Exam Extremities exam: Present: warm - Neurological Exam Neurological exam: Present: alert, oriented X3, no focal deficits - Psychiatric Psychiatric exam: Present: anxious
--- NOTE | 2016-10-11 07:55 | Electrocardiograph Report ---
[place] [id number] Test Date: 2016-10-06 Pat Name: Myranda Rosales Department: 102 Room: 2A24 Gender: F [employer] Supervisor: Kate : 1975 Requested By: Jeff Spear Order Number: [id number] Reading MD: Ruperto Jeffrey DO Measurements Intervals [place] Rate: 119 P: 26 NM: 124 QRS: 23 QRSD: 92 T: 55 QT: 304 QTc: 375 Interpretive Statements SINUS TACHYCARDIA Electronically Signed On 10-07-2016 16:55:51 EDT by Ruperto Jeffrey DO
== END 2016-10-08 16:11 | disposition short-term general hospital (02) | DRG 871 ==
LOC: EMEROO 17:22 → 3BNU 17:22 → SUATTDRO 10-07 12:29 → 2ANU 10-07 16:02
PROVIDERS: ADMIT Nurse Practitioner Family; ATTEND Internal Medicine